=== PATIENT | male | born 1940 | race Caucasian/White ===

== ENCOUNTER 2018-08-23 22:52 | Observation (INO) | payer MEDICARE ==
[2018-08-24] MEDS ORDERED: SODIUM CHLORIDE 0.9% 500 ML 500 ML IV STA (00:02)
--- NOTE | 2018-08-24 00:11 | ED ---
General Adult HPI - General Source: patient Mode of arrival: ambulatory Limitations: no limitations <Tyra Horn - Last Filed: 08/24/18 01:45> <Randall Rowe - Last Filed: 08/25/18 08:11> - General Chief complaint: Allergic Reaction Stated complaint: Medication reaction Time Seen by Provider: 08/23/18 23:30 - History of Present Illness Initial comments: 78-year-old male patient presents to the emergency department today for evaluation of chest and throat pressure. Patient states that it started yesterday morning and has been intermittent since. Patient states that when the pressure comes on causes intense feeling in his chest but then it resolves. Patient is taking clindamycin for a recent dental procedure and infection. Patient was concerned he may be having an ALLERGIC reaction however has taken 9 prophylaxis clindamycin before each dental procedure because he has history of knee replacement. Patient denies any rash, itching, lip, or tongue swelling. Denies any shortness of breath, cough, congestion, nausea, vomiting or sweats. Patient denies any past medical history of cardiac events or family history of heart problems. Patient denies any use of tobacco or history of diabetes. Patient denies any recent rash, fever, chills, abdominal pain, diarrhea, constipation, back pain, numbness, tingling, dizziness, weakness, hematuria, dysuria, urinary urgency, urinary frequency, headache, visual changes, or any other complaints. (Tyra Horn) - Related Data Allergies Allergy/AdvReac Type Severity Reaction Status Date / Time Penicillins Allergy Rash/Hives Verified 08/24/18 09:17 Review of Systems ROS Other: All systems not noted in ROS Statement are negative. <Tyra Horn - Last Filed: 08/24/18 01:45> ROS Other: All systems not noted in ROS Statement are negative. <Randall Rowe - Last Filed: 08/25/18 08:11> ROS Statement: Those systems with pertinent positive or pertinent negative responses have been documented in the HPI. Past Medical History Past Medical History: No Reported History History of Any Multi-Drug Resistant Organisms: None Reported Past Surgical History: Appendectomy, Orthopedic Surgery Additional Past Surgical History / Comment(s): lt knee Past Psychological History: No Psychological Hx Reported Smoking Status: Never smoker Past Alcohol Use History: Occasional Past Drug Use History: None Reported <Tyra Horn M - Last Filed: 08/24/18 01:45> General Exam Limitations: no limitations General appearance: alert, in no apparent distress, other (This is a well- developed, well-nourished elderly male patient in no acute distress. Vital signs upon presentation are temperature 98.7F, pulse 82, respirations 20, blood pressure 190/83, pulse ox 98% on room air.) Eye exam: Present: normal appearance, PERRL, EOMI. Absent: scleral icterus, conjunctival injection, periorbital swelling ENT exam: Present: normal exam, normal oropharynx, mucous membranes moist Respiratory exam: Present: normal lung sounds bilaterally. Absent: respiratory distress, wheezes, rales, rhonchi, stridor Cardiovascular Exam: Present: regular rate, normal rhythm, normal heart sounds. Absent: systolic murmur, diastolic murmur, rubs, gallop, clicks GI/Abdominal exam: Present: soft, normal bowel sounds. Absent: distended, tenderness, guarding, rebound, rigid Neurological exam: Present: alert, oriented X3, CN II-XII intact Psychiatric exam: Present: normal affect, normal mood Skin exam: Present: warm, dry, intact, normal color. Absent: rash <Tyra Horn M - Last Filed: 08/24/18 01:45> Vital Signs 08/23/18 08/24/18 08/24/18 22:54 01:22 03:45 Temperature 98.7 F Pulse Rate 82 65 Respiratory 20 18 18 Rate Blood Pressure 190/83 159/79 O2 Sat by Pulse 98 97 Oximetry 08/24/18 08/24/18 08/24/18 04:58 05:45 07:33 Temperature 98.7 F 97.9 F 97.8 F Pulse Rate 71 75 71 Respiratory 18 18 18 Rate Blood Pressure 187/92 187/116 172/89 O2 Sat by Pulse 98 96 96 Oximetry 08/24/18 08/24/18 09:22 10:17 Temperature 97.7 F Pulse Rate 64 63 Respiratory 16 18 Rate Blood Pressure 196/101 189/88 O2 Sat by Pulse 97 98 Oximetry EKG Findings - EKG Comments: EKG Findings:: EKG obtained at 00 31 shows sinus rhythm with PACs, right bundle branch block. Ventricular rate is 76, VA interval 192, QRS duration 124, QT 428 , QTC 481. No evidence of ST elevation or depression. <Tyra Horn - Last Filed: 08/24/18 01:45> Medical Decision Making - Lab Data Result diagrams: 08/24/18 00:40 08/24/18 00:40 - Radiology Data Radiology results: report reviewed, image reviewed <Tyra Horn - Last Filed: 08/24/18 01:45> - Lab Data Result diagrams: 08/24/18 00:40 08/24/18 00:40 <Randall Rowe - Last Filed: 08/25/18 08:11> - Medical Decision Making 78 year-old male patient presents to the emergency department today for evaluation of chest pressure and throat tightness. This has been happening intermittently since yesterday. Patient was concerned he may be having ALLERGIC reaction to clindamycin however has tolerated this numerous times in the past that this is unlikely. Labs reviewed and are unremarkable. Chest x- ray showed no acute cardiopulmonary process. Patient did have evidence of EKG changes with right bundle branch block and PACs. We have no previous EKGs to compare. Given EKG findings and his symptoms we will admit for observation and further evaluation by cardiology tomorrow. Did discuss findings, results, and plan with the patient, he is agreeable. (Tyra Horn) I saw this patient in conjunction with the physician regional administrative assistant. I performed independent history and physical exam. Agree with case management. (Randall Rowe) - Lab Data Lab Results 08/24/18 08/24/18 08/24/18 Range/Units 00:40 00:40 00:40 WBC 5.2 (3.8-10.6) k/uL RBC 5.04 (4.30-5.90) m/uL Hgb 13.7 (13.0-17.5) gm/dL Hct 42.4 (39.0-53.0) % MCV 84.2 (80.0-100.0) fL MCH 27.3 (25.0-35.0) pg MCHC 32.4 (31.0-37.0) g/dL RDW 13.8 (11.5-15.5) % Plt Count 166 (150-450) k/uL Neutrophils % 62 % Lymphocytes % 23 % Monocytes % 10 % Eosinophils % 2 % Basophils % 1 % Neutrophils # 3.3 (1.3-7.7) k/uL Lymphocytes # 1.2 (1.0-4.8) k/uL Monocytes # 0.5 (0-1.0) k/uL Eosinophils # 0.1 (0-0.7) k/uL Basophils # 0.0 (0-0.2) k/uL PT (9.0-12.0) sec INR (<1.2) APTT (22.0-30.0) sec Sodium 141 (137-145) mmol/L Potassium 3.5 (3.5-5.1) mmol/L Chloride 106 (98-107) mmol/L Carbon Dioxide 26 (22-30) mmol/L Anion Gap 9 mmol/L BUN 17 (9-20) mg/dL Creatinine 0.90 (0.66-1.25) mg/dL Est GFR (CKD-EPI)AfAm >90 (>60 ml/min/1.73 sqM) Est GFR (CKD-EPI)NonAf 83 (>60 ml/min/1.73 sqM) Glucose 108 H (74-99) mg/dL Calcium 8.2 L (8.4-10.2) mg/dL Magnesium 1.7 (1.6-2.3) mg/dL Total Bilirubin 0.3 (0.2-1.3) mg/dL AST 29 (17-59) U/L ALT 40 (21-72) U/L Alkaline Phosphatase 71 (38-126) U/L Total Creatine Kinase 206 H (55-170) U/L CK-MB (CK-2) 3.1 H (0.0-2.4) ng/mL CK-MB (CK-2) Rel Index 1.5 Troponin I <0.012 (0.000-0.034) ng/mL Total Protein 6.4 (6.3-8.2) g/dL Albumin 3.6 (3.5-5.0) g/dL 08/24/18 Range/Units 00:40 WBC (3.8-10.6) k/uL RBC (4.30-5.90) m/uL Hgb (13.0-17.5) gm/dL Hct (39.0-53.0) % MCV (80.0-100.0) fL MCH (25.0-35.0) pg MCHC (31.0-37.0) g/dL RDW (11.5-15.5) % Plt Count (150-450) k/uL Neutrophils % % Lymphocytes % % Monocytes % % Eosinophils % % Basophils % % Neutrophils # (1.3-7.7) k/uL Lymphocytes # (1.0-4.8) k/uL Monocytes # (0-1.0) k/uL Eosinophils # (0-0.7) k/uL Basophils # (0-0.2) k/uL PT 10.8 (9.0-12.0) sec INR 1.1 (<1.2) APTT 25.2 (22.0-30.0) sec Sodium (137-145) mmol/L Potassium (3.5-5.1) mmol/L Chloride (98-107) mmol/L Carbon Dioxide (22-30) mmol/L Anion Gap mmol/L BUN (9-20) mg/dL Creatinine (0.66-1.25) mg/dL Est GFR (CKD-EPI)AfAm (>60 ml/min/1.73 sqM) Est GFR (CKD-EPI)NonAf (>60 ml/min/1.73 sqM) Glucose (74-99) mg/dL Calcium (8.4-10.2) mg/dL Magnesium (1.6-2.3) mg/dL Total Bilirubin (0.2-1.3) mg/dL AST (17-59) U/L ALT (21-72) U/L Alkaline Phosphatase (38-126) U/L Total Creatine Kinase (55-170) U/L CK-MB (CK-2) (0.0-2.4) ng/mL CK-MB (CK-2) Rel Index Troponin I (0.000-0.034) ng/mL Total Protein (6.3-8.2) g/dL Albumin (3.5-5.0) g/dL - Radiology Data Two-view x-ray of the chest is obtained. There is a small linear density at the left lung base. There is no heart failure. Heart size is normal. There is poor inspiration. Thoracic aorta is atheromatous. There is no pleural effusion. Bony thorax is intact. Impression by Dr. Hines shows subsegmental atelectasis at the lung bases. No heart failure or pulmonary consolidation. Normal heart. (Tyra Horn) Disposition Decision to Admit Reason: Admit from EC Decision Date: 08/24/18 Decision Time: 01:49 <Tyra Horn - Last Filed: 08/24/18 01:45> <Randall Rowe - Last Filed: 08/25/18 08:11> Clinical Impression: Atypical chest pain Disposition: ADMITTED IP TO THIS HOSP Condition: Serious
--- NOTE | 2018-08-24 01:05 | XR ---
EXAMINATION TYPE: XR chest 2V DATE OF EXAM: 08/24/2018 COMPARISON: NONE HISTORY: Chest pain for one day TECHNIQUE: Frontal and lateral views of the chest are obtained. FINDINGS: There is small linear density at the left lung base. There is no heart failure. Heart size is normal. There is poor inspiration. Thoracic aorta is atheromatous. There is no pleural effusion. Bony thorax is intact. IMPRESSION: Subsegmental atelectasis at the lung bases. No heart failure or pulmonary consolidation. Normal heart.
[2018-08-24 01:06] LABS: Basophils % (A) 1 %; Eosinophils # (A) 0.1 k/uL (0-0.7); Eosinophils % (A) 2 %; HCT 42.4 % (39.0-53.0); HGB 13.7 gm/dL (13.0-17.5); Lymphocytes # (A) 1.2 k/uL (1.0-4.8); Lymphocytes % (A) 23 %; MCH 27.3 pg (25.0-35.0); MCHC 32.4 g/dL (31.0-37.0); MCV 84.2 fL (80.0-100.0); Mean Platelet Volume 7.4; Monocytes # (A) 0.5 k/uL (0-1.0); Monocytes % (A) 10 %; Neutrophils # (A) 3.3 k/uL (1.3-7.7); Neutrophils % (A) 62 %; Platelet Count 166 k/uL (150-450); RBC 5.04 m/uL (4.30-5.90); RDW 13.8 % (11.5-15.5); WBC 5.2 k/uL (3.8-10.6)
[2018-08-24 01:07] LABS: ALT 40 U/L (21-72); AST 29 U/L (17-59); Albumin 3.6 g/dL (3.5-5.0); Alkaline Phosphatase 71 U/L (38-126); Anion Gap 9 mmol/L; Blood Urea Nitrogen 17 mg/dL (9-20); Calcium 8.2 mg/dL (8.4-10.2); Carbon Dioxide 26 mmol/L (22-30); Chloride 106 mmol/L (98-107); Glucose 108 mg/dL (74-99); Magnesium 1.7 mg/dL (1.6-2.3); Potassium 3.5 mmol/L (3.5-5.1); Sodium 141 mmol/L (137-145); Total Bilirubin 0.3 mg/dL (0.2-1.3); Total Protein 6.4 g/dL (6.3-8.2)
[2018-08-24 01:10] LABS: Creatine Kinase 206 U/L (55-170)
[2018-08-24 01:13] LABS: INR 1.1 (<1.2); Prothrombin Time 10.8 sec (9.0-12.0)
[2018-08-24 01:14] LABS: Partial Thromboplastin Time 25.2 sec (22.0-30.0)
[2018-08-24 01:23] LABS: Creatine Kinase MB 3.1 ng/mL (0.0-2.4); Troponin I <0.012 ng/mL (0.000-0.034)
[2018-08-24] MEDS ORDERED: NITROGLYCERIN SL TABS 0.4 MG TAB SUBLINGUAL PRN (01:43)
[2018-08-24] MEDS ORDERED: METOPROLOL TARTRATE 25 MG TAB PO STA (06:50)
[2018-08-24] MEDS ORDERED: LISINOPRIL 5 MG TAB PO ONE (07:55)
[2018-08-24 08:01] LABS: Creatine Kinase 160 U/L (55-170)
[2018-08-24 08:11] LABS: Creatine Kinase MB 2.7 ng/mL (0.0-2.4); Troponin I <0.012 ng/mL (0.000-0.034)
[2018-08-24] MEDS ORDERED: REGADENOSON 0.4 MG/5 ML SYRINGE IV ONE (09:01)
[2018-08-24] MEDS ORDERED: CAFFEINE CITRATE 60 MG/3 ML VIAL IV PRN (09:01)
--- NOTE | 2018-08-24 09:46 | P.CRDCN ---
History of Present Illness History of present illness: Mr. Benites is a pleasant 78-year-old female past medical history significant for gastroesophageal reflux disease. He denies history of coronary artery disease, hypertension, diabetes or dyslipidemia. We have asked him in consultation for chest pain. He states he started taking antibiotics last week for a root canal procedure. He underwent the procedure Tuesday without incident. Tuesday he started having intermittent episodes of tightness in the mid-sternal region with radiation up into his neck. The symptoms would last for a couple minutes and then subside on their own. He had no shortness of breath, dizziness , nausea, vomiting or palpitations. The symptoms persisted intermittently throughout the day Tuesday and then again throughout the day Tuesday. He states he saw his primary care physician recently and had his cholesterol drawn and said that it was normal. Since arriving in the ED has had no further symptoms of chest discomfort. He is seen and examined by myself and Dr. Eli resting comfortably in bed in no acute distress. Upon arrival blood pressure was 190/83 with a heart rate of 82. Blood pressure remained elevated through the night in the 170-180 range. He was given metoprolol 25 mg this morning at 7 AM. Repeat thereafter was again high 196/101. EKG on arrival reveals sinus mechanism with right bundle branch block pattern with PACs. Chest xray reveals subsegmental atelectasis at the lung bases. No heart failure or consolidation. Laboratory data reviewed, hgb 13.8, plt 166, sodium 141, potassium 3.5, magnesium 1.7, creatinine 0.9, cardiac enzymes negative x2. He takes only over the counter medications for GERD, no prescription medication daily. Plan: An acute coronary event has been ruled out. Obtain 2-D echocardiogram and Doppler study to assess cardiac structure and function. Perform Lexiscan stress test to assess for reversible cardiac ischemia. If normal he is stable from a cardiac perspective. If abnormal we will consider coronary angiography. Add on small dose of lisinopril 5 mg, give now. Review of Systems At the time of my exam: CONSTITUTIONAL: Denies fever. Denies chills. EYES: Denies blurred vision. Denies vision changes. Denies eye pain. EARS, NOSE, MOUTH & THROAT: Denies headache. Denies sore throat. Denies ear pain. CARDIOVASCULAR: Denies chest pain. Denies shortness of breath. Denies orthopnea. Denies PND. Denies palpitations. RESPIRATORY: Denies cough. GASTROINTESTINAL: Denies abdominal pain. Denies diarrhea. Denies constipation. Denies nausea. Denies vomiting. MUSCULOSKELETAL: Denies myalgias. INTEGUMENTARY: Denies pruitis. Denies rash. NEUROLOGIC: Denies numbness. Denies tingling. Denies weakness. PSYCHIATRIC: Denies anxiety. Denies depression. ENDOCRINE: Denies fatigue. Denies weight change. Denies polydipsia. Denies polyurina. GENITOURINARY: Denies burning, hematuria or urgency with micturation. HEMATOLOGIC: Denies history of anemia. Denies bleeding. Past Medical History Past Medical History: No Reported History History of Any Multi-Drug Resistant Organisms: None Reported Past Surgical History: Appendectomy, Orthopedic Surgery Additional Past Surgical History / Comment(s): lt knee Past Psychological History: No Psychological Hx Reported Smoking Status: Never smoker Past Alcohol Use History: Occasional Past Drug Use History: None Reported Medications and Allergies Allergies Allergy/AdvReac Type Severity Reaction Status Date / Time Penicillins Allergy Rash/Hives Verified 08/23/18 22:57 Physical Exam Vitals: Vital Signs Temp Pulse Resp BP Pulse Ox 08/24/18 07:33 97.8 F 71 18 172/89 96 08/24/18 05:45 97.9 F 75 18 187/116 96 08/24/18 04:58 98.7 F 71 18 187/92 98 08/24/18 03:45 18 08/24/18 01:22 65 18 159/79 97 08/23/18 22:54 98.7 F 82 20 190/83 98 Intake and Output 08/23/18 08/24/18 08/24/18 22:59 06:59 14:59 Other: Weight 74.843 kg Blood pressure 196/101 heart rate 64 afebrile maintaining oxygen saturation on room air GENERAL: This is a 78-year-old male in no apparent distress at the time of my examination. HEENT: Head is atraumatic, normocephalic. Pupils are equal, round. Sclerae anicteric. Conjunctivae are clear. Mucous membranes of the mouth are moist. Neck is supple. There is no jugular venous distention. No carotid bruit is heard. LUNGS: Clear to auscultation no wheezes, rales or rhonchi. No chest wall tenderness is noted on palpation or with deep breathing. HEART: Regular rate and rhythm without murmurs, rubs or gallops. S1 and S2 heard. ABDOMEN: Soft, nontender. Bowel sounds are heard. No organomegaly noted. EXTREMITIES: No evidence of peripheral edema and no calf tenderness noted. VASCULAR: Radial and dorsalis pedis pulses palpated, no evidence of clubbing. NEUROLOGIC: Patient is awake, alert and oriented x3. Results 08/24/18 00:40 08/24/18 00:40 Cardiac Enzymes 08/24/18 08/24/18 Range/Units 00:40 00:40 AST 29 (17-59) U/L CK-MB (CK-2) 3.1 H (0.0-2.4) ng/mL Troponin I <0.012 (0.000-0.034) ng/mL Coagulation 08/24/18 Range/Units 00:40 PT 10.8 (9.0-12.0) sec APTT 25.2 (22.0-30.0) sec CBC 08/24/18 Range/Units 00:40 WBC 5.2 (3.8-10.6) k/uL RBC 5.04 (4.30-5.90) m/uL Hgb 13.7 (13.0-17.5) gm/dL Hct 42.4 (39.0-53.0) % Plt Count 166 (150-450) k/uL Comprehensive Metabolic Panel 08/24/18 Range/Units 00:40 Sodium 141 (137-145) mmol/L Potassium 3.5 (3.5-5.1) mmol/L Chloride 106 (98-107) mmol/L Carbon Dioxide 26 (22-30) mmol/L BUN 17 (9-20) mg/dL Creatinine 0.90 (0.66-1.25) mg/dL Glucose 108 H (74-99) mg/dL Calcium 8.2 L (8.4-10.2) mg/dL AST 29 (17-59) U/L ALT 40 (21-72) U/L Alkaline Phosphatase 71 (38-126) U/L Total Protein 6.4 (6.3-8.2) g/dL Albumin 3.6 (3.5-5.0) g/dL Current Medications Generic Name Dose Route Start Last Admin Trade Name Darenq PRN Reason Stop Dose Admin Aspirin 325 mg 08/25/18 09:00 Aspirin PO DAILY HECTOR Nitroglycerin 0.4 mg 08/24/18 01:43 Nitrostat SUBLINGUAL Q5M PRN Chest Pain Intake and Output 08/23/18 08/24/18 08/24/18 22:59 06:59 14:59 Other: Weight 74.843 kg 08/24/18 00:40 08/24/18 00:40 Assessment and Plan Assessment: ASSESSMENT Chest pain, atypical. An acute event has been ruled out. History of gastroesophageal reflux disease Hypertension, no known history currently not on any medications. PLAN An acute coronary event has been ruled out. Obtain 2-D echocardiogram and Doppler study to assess cardiac structure and function. Perform Lexiscan stress test to assess for reversible cardiac ischemia. If normal he is stable from a cardiac perspective. If abnormal we will consider coronary angiography. Add on small dose of lisinopril 5 mg, give now. Thank you kindly for this consultation. Nurse Practitioner note has been reviewed, I agree with a documented findings and plan of care. Patient was seen and examined.
[2018-08-24 10:18] VITALS: RESP 18
[2018-08-24 12:42] VITALS: BP 184/94; PULSE 64; TEMP 97.6
[2018-08-24] MEDS ORDERED: MAGNESIUM OXIDE 400 MG TAB PO STA (12:43)
--- NOTE | 2018-08-24 12:46 | NM ---
EXAMINATION TYPE: NM stress lexiscan cardiolite DATE OF EXAM: 08/24/2018 COMPARISON: NONE HISTORY: Chest pain. TECHNIQUE: After the intravenous administration of 10.0 mCi Tc 99m Sestamibi - Cardiolite resting SP ECT images acquired 45 minutes post injection. The patient received 0.4mg Lexiscan, 27.1 mCi Tc 99m Sestamibi - Stress images obtained [address] injection FINDINGS: Review of stress and rest SPECT images demonstrates no distinct perfusion abnormality. Gated analysi s shows normal wall motion with an estimated left ventricular ejection fraction of 66 %. Transient is chemic dilatation coefficient is within normal limits calculated at 0.82. IMPRESSION: No scintigraphic evidence for reversible ischemia. Normal ejection fraction.
--- NOTE | 2018-08-24 13:03 | ECHOF ---
Referral Reason:cp MEASUREMENTS -------- HEIGHT: 172.7 cm WEIGHT: 83.9 kg BP: IVSd: 1.3 cm (0.6 - 1.1) LVIDd: 4.9 cm (3.9 - 5.3) LVPWd: 1.0 cm (0.6 - 1.1) IVSs: 1.4 cm LVIDs: 3.6 cm LVPWs: 1.1 cm LA Diam: 3.6 cm (2.7 - 3.8) LAESV Index (A-L): 29.71 ml/m Ao Diam: 3.6 cm (2.0 - 3.7) AV Cusp: 2.0 cm (1.5 - 2.6) LA Diam: 4.4 cm (2.7 - 3.8) MV EXCURSION: 22.560 mm (> 18.000) MV EF SLOPE: 100 mm/s (70 - 150) EPSS: 0.7 cm MV E Matthew: 0.62 m/s MV DecT: 167 ms MV A Matthew: 0.69 m/s MV E/A Ratio: 0.89 RAP: 5.00 mmHg RVSP: 17.61 mmHg FINDINGS -------- Sinus rhythm. This was a technically good study. The left ventricular size is normal. There is mild concentric left ventricular hypertrophy. Overa ll left ventricular systolic function is low-normal with, an EF between 50 - 55 %. The right ventricle is normal in size. The left atrial size is normal. Normal LA size by volume 22+/-6 ml/m2. The right atrial size is normal. There is mild aortic valve sclerosis. There is no evidence of aortic regurgitation. Mild mitral annular calcification present. Mild mitral regurgitation is present. Mild tricuspid regurgitation present. There is no evidence of pulmonary hypertension. The right v entricular systolic pressure, as measured by Doppler, is 17.61mmHg. There is no pulmonic regurgitation present. The aortic root size is normal. There is no pericardial effusion. CONCLUSIONS -------- 1. The left ventricular size is normal. 2. There is mild concentric left ventricular hypertrophy. 3. Overall left ventricular systolic function is low-normal with, an EF between 50 - 55 %. 4. The right ventricle is normal in size. 5. The left atrial size is normal. 6. The right atrial size is normal. 7. There is mild aortic valve sclerosis. 8. Mild mitral annular calcification present. 9. Mild mitral regurgitation is present. 10. Mild tricuspid regurgitation present. 11. There is no evidence of pulmonary hypertension. 12. The right ventricular systolic pressure, as measured by Doppler, is 17.61mmHg. 13. There is no pulmonic regurgitation present. 14. The aortic root size is normal. 15. There is no pericardial effusion. [employer] BR[employer]ING MACHINE OPERATOR: Vonda Sullivan RDCS
--- NOTE | 2018-08-24 15:56 | P.HPIM ---
History of Present Illness 78-year-old was Emiliano came in to ER with complaints of throat pressure chest pressure after getting clindamycin and he believes is ALLERGIC reaction to bleomycin patient had a recent root canal in the right lower tooth and the was prescribed clindamycin by the dentist. Patient chest pressure is not associated with the diaphoresis nausea only temporary only lasted for a few minutes denied any dizziness nonpruritic in nature not associated with food. Patient blood pressure is bit elevated throughout the hospitalization patient was started on lisinopril. Patient was evaluated by cardiology rule out acute coronary syndromes patient underwent stress test which was negative and patient is being discharged today in stable medical condition to home clindamycin is being discontinued and I asked the patient to call his dentist find if he will need more antibiotics. Please refer to air traffic control operator dictation for further details Review of Systems REVIEW OF SYSTEMS: CONSTITUTIONAL: No fever, no malaise, no fatigue. HEENT: No recent visual problems or hearing problems. Denied any sore throat. CARDIOVASCULAR: No orthopnea, PND, no palpitations, no syncope. PULMONARY: No shortness of breath, no cough, no hemoptysis. GASTROINTESTINAL: No diarrhea, no nausea, no vomiting, no abdominal pain. Normoactive bowel sounds. NEUROLOGICAL: No headaches, no weakness, no numbness. HEMATOLOGICAL: Denies any bleeding or petechiae. GENITOURINARY: Denies any burning micturition, frequency, or urgency. MUSCULOSKELETAL/RHEUMATOLOGICAL: Denies any joint pain, swelling, or any muscle pain. ENDOCRINE: Denies any polyuria or polydipsia. The rest of the 14-point review of systems is negative. Past Medical History Past Medical History: GERD/Reflux Additional Past Medical History / Comment(s): Recent tooth infection, insomnia. History of Any Multi-Drug Resistant Organisms: None Reported Past Surgical History: Appendectomy, Joint Replacement Additional Past Surgical History / Comment(s): L total knee arthroplasty, bilateral cataract removal with lens implants. Past Anesthesia/Blood Transfusion Reactions: No Reported Reaction Smoking Status: Former smoker - Past Family History Mother Family Medical History: No Reported History Additional Family Medical History / Comment(s): Mother lived to be 93 yrs old. Father Family Medical History: Cancer Additional Family Medical History / Comment(s): Father of prostrate cancer at the age of 64yrs. Medications and Allergies Home Medications Medication Instructions Recorded Confirmed Type Ibuprofen [Motrin] 800 mg PO Q4H PRN 08/24/18 08/24/18 History Lisinopril [Zestril] 5 mg PO DAILY #30 tablet 08/24/18 Rx Omeprazole 20 mg PO DAILY 08/24/18 08/24/18 History Temazepam [Restoril] 30 mg PO HS PRN 08/24/18 08/24/18 History Allergies Allergy/AdvReac Type Severity Reaction Status Date / Time Penicillins Allergy Rash/Hives Verified 08/24/18 09:17 Physical Exam Vitals: Vital Signs Temp Pulse Pulse Resp BP BP Pulse Ox 08/24/18 12:39 97.6 F 64 18 184/94 98 08/24/18 12:35 72 18 181/83 97 08/24/18 10:17 97.7 F 63 18 189/88 98 08/24/18 09:22 64 16 196/101 97 08/24/18 07:33 97.8 F 71 18 172/89 96 08/24/18 05:45 97.9 F 75 18 187/116 96 08/24/18 04:58 98.7 F 71 18 187/92 98 08/24/18 03:45 18 08/24/18 01:22 65 18 159/79 97 08/23/18 22:54 98.7 F 82 20 190/83 98 Intake and Output 08/24/18 08/24/18 08/24/18 06:59 14:59 22:59 Other: Weight 78.5 kg PHYSICAL EXAMINATION: GENERAL: The patient is alert and oriented x3, not in any acute distress. Well developed, well nourished. HEENT: Pupils are round and equally reacting to light. EOMI. No scleral icterus. No conjunctival pallor. Normocephalic, atraumatic. No pharyngeal erythema. No thyromegaly. CARDIOVASCULAR: S1 and S2 present. No murmurs, rubs, or gallops. PULMONARY: Chest is clear to auscultation, no wheezing or crackles. ABDOMEN: Soft, nontender, nondistended, normoactive bowel sounds. No palpable organomegaly. MUSCULOSKELETAL: No joint swelling or deformity. EXTREMITIES: No cyanosis, clubbing, or pedal edema. NEUROLOGICAL: Gross neurological examination did not reveal any focal deficits. SKIN: No rashes. Results CBC & Chem 7: 10/11/18 00:40 08/24/18 00:40 Labs: Abnormal Lab Results - Last 24 Hours (Table) 08/24/18 08/24/18 08/24/18 Range/Units 00:40 00:40 07:25 Glucose 108 H (74-99) mg/dL Calcium 8.2 L (8.4-10.2) mg/dL Total Creatine Kinase 206 H (55-170) U/L CK-MB (CK-2) 3.1 H 2.7 H (0.0-2.4) ng/mL Thrombosis Risk Factor Assmnt - Choose All That Apply Any of the Below Risk Factors Present?: Yes Each Factor Represents 1 point: Obesity (BMI >25) Other Risk Factors: Yes Each Risk Factor Represents 3 Points: Age 75 years or older Other congenital or acquired thrombophilia - If yes, enter type in comment: No Thrombosis Risk Factor Assessment Total Risk Factor Score: 4 Thrombosis Risk Factor Assessment Level: Moderate Risk Assessment and Plan Plan: -Chest pain: Rule out acute coronary syndromes stroke, stresses is negative -Possible ALLERGIC reaction to clindamycin -Hypertension -Gastro- esophageal reflux disease
--- NOTE | 2018-08-24 15:56 | P.DS ---
Providers Date of admission: 08/24/18 02:12 Attending physician: Carlos Adams Consults: 08/24/18 01:43 Consult Physician Urgent Consulting Provider: [facility] Consult Reason/Comments: Atypical Chest Pain Do you want consulting provider notified?: Yes Primary care physician: Kerwin Mckeon Hospital Course: Please refer to my HPI Patient Condition at Discharge: Serious Plan - Discharge Summary Discharge Rx Participant: No New Discharge Prescriptions: New Lisinopril [Zestril] 5 mg PO DAILY #30 tablet Discontinued Clindamycin [Cleocin] 150 mg PO TID Clindamycin [Cleocin] 300 mg PO ONCE No Action Temazepam [Restoril] 30 mg PO HS PRN PRN Reason: Insomnia Omeprazole 20 mg PO DAILY Ibuprofen [Motrin] 800 mg PO Q4H PRN PRN Reason: Pain Discharge Medication List Ibuprofen [Motrin] 800 mg PO Q4H PRN 08/24/18 [History] Lisinopril [Zestril] 5 mg PO DAILY #30 tablet 08/24/18 [Rx] Omeprazole 20 mg PO DAILY 08/24/18 [History] Temazepam [Restoril] 30 mg PO HS PRN 08/24/18 [History] Follow up Appointment(s)/Referral(s): Brandon Eli MD [STAFF PHYSICIAN] - 3 Weeks (The office will call early next week with follow up appointment with Dr. Eli) Kerwin Mckeon MD [Primary Care Provider] - 3 Days Patient Instructions/Handouts: Chest Pain (DC), Cardiac Stress Test (DC) Discharge Disposition: HOME SELF-CARE
--- NOTE | 2018-08-24 20:44 | EST ---
EXERCISE STRESS AGE: 78 SEX: M HT: 5 foot 8 WT: 165 PROTOCOL: Lexiscan HEART RATE REST: 63 BLOOD PRESSURE REST: 154/94 MAXIMUM HEART RATE ACHIEVED: 89 MAXIMUM BLOOD PRESSURE: 177/92 85% MPHR: 122 100% MPHR: 144. INDICATIONS: Chest pain. CLINICAL INFORMATION: Baseline EKG revealed a sinus mechanism with isolated PVCs with a nonspecific ST-T changes. There is evidence of a incomplete right bundle branch block type pattern. With Lexiscan administration, heart rate changed from 63-89 beats per minute and blood pressure changed from 154/91 to 174/90. EKG did not reveal any new ST-segment changes to indicate ischemia. The underlying right bundle with nonspecific ST-T changes were noted. By EKG criteria, this is an inconclusive Lexiscan stress test because of resting EKG changes. Patient did not have any significant symptoms. The nuclear scan results will be reported by the radiologist. PETE / FELA: [id number] /
[2018-08-25] MEDS ORDERED: ASPIRIN 325 MG TAB PO SCH (09:00)
== END 2018-08-24 14:30 | disposition home or self-care (01) ==
LOC: EC 22:52 → 3OBS 08-24 02:12
PROVIDERS: ADMIT Internal Medicine; ATTEND Internal Medicine
DX: R07.89 Other chest pain (principal); Z88.0 Allergy status to penicillin; Z90.49 Acquired absence of other specified parts of digestive tract; K21.9 Gastro-esophageal reflux disease without esophagitis; I10 Essential (primary) hypertension; I45.10 Unspecified right bundle-branch block; Z87.891 Personal history of nicotine dependence; Z96.1 Presence of intraocular lens; Z96.652 Presence of left artificial knee joint; Z98.41 Cataract extraction status, right eye; Z98.42 Cataract extraction status, left eye; Z79.899 Other long term (current) drug therapy
CPT/HCPCS: 99285; 36415; 93005; 93017; 93306; 80053; 82550; 82553; 83735; 84484; 85025; 85610; 85730; 71046; 78452; G0378; A9500; J2785

== ENCOUNTER 2019-06-10 20:47 | Inpatient (IN) | payer MEDICARE ==
[2019-06-10 20:59] LABS: Glucose,Whole Blood 86 mg/dL (75-99)
--- NOTE | 2019-06-10 21:09 | ED ---
Eye Problem HPI - General Chief complaint: Eye Problems Stated complaint: Lost of vision/Headache Time Seen by Provider: 06/10/19 20:54 Source: patient, RN notes reviewed Mode of arrival: ambulatory Limitations: no limitations - History of Present Illness Initial comments: This is a 79-year-old male history of stroke who states he was working on his tractor yesterday trying get one more blades off and one wouldn't come off easily he asked he struggled restrained using his feet to try and pry the bolt off. When he got done he came out from under tractor felt dizzy had a headache and suddenly lost vision in the left half of his left eye. This has been going on since yesterday morning nothing new he did have some tingling in his left toes. No weakness no other modifying factors this time no change in the symptoms since that time. No fevers chills nausea vomiting sweats or other symptoms reported. MD chief complaint: vision change, other If Pain, Quality: sharp Associated Symptoms: headache - Related Data Home Medications Medication Instructions Recorded Confirmed Omeprazole 20 mg PO DAILY 08/24/18 06/10/19 Temazepam [Restoril] 30 mg PO HS PRN 08/24/18 06/10/19 Ciprofloxacin HCl [Cipro] 500 mg PO BID 06/10/19 06/10/19 Finasteride [Proscar] 5 mg PO DAILY 06/10/19 06/10/19 Lisinopril-Hctz 20-25 mg 1 tab PO DAILY 06/10/19 06/10/19 [Zestoretic 20-25] Meclizine [Antivert] 25 mg PO TID 06/10/19 06/10/19 Allergies Allergy/AdvReac Type Severity Reaction Status Date / Time Penicillins Allergy Rash/Hives Verified 06/10/19 22:12 Review of Systems ROS Statement: Those systems with pertinent positive or pertinent negative responses have been documented in the HPI. ROS Other: All systems not noted in ROS Statement are negative. Past Medical History Past Medical History: GERD/Reflux, Prostate Disorder Additional Past Medical History / Comment(s): insomnia, History of Any Multi-Drug Resistant Organisms: None Reported Past Surgical History: Appendectomy, Joint Replacement Additional Past Surgical History / Comment(s): L total knee arthroplasty, bilateral cataract removal with lens implants. Past Anesthesia/Blood Transfusion Reactions: No Reported Reaction Past Psychological History: No Psychological Hx Reported Smoking Status: Former smoker Past Alcohol Use History: Occasional Past Drug Use History: None Reported - Past Family History Mother Family Medical History: No Reported History Additional Family Medical History / Comment(s): Mother lived to be 93 yrs old. Father Family Medical History: Cancer Additional Family Medical History / Comment(s): Father of prostrate cancer at the age of 64yrs. General Exam - General Exam Comments Initial Comments: This is a well-developed well-nourished awake alert oriented 3 male Limitations: no limitations General appearance: alert, anxious Head exam: Present: atraumatic, normocephalic, normal inspection Eye exam: Present: normal appearance, PERRL, EOMI. Absent: scleral icterus, conjunctival injection, periorbital swelling Pupils: Present: normal accommodation ENT exam: Present: normal exam, mucous membranes moist Neck exam: Present: normal inspection, full ROM, other (No stridor JVD or bruits). Absent: tenderness, meningismus, lymphadenopathy Respiratory exam: Present: normal lung sounds bilaterally. Absent: respiratory distress, wheezes, rales, rhonchi, stridor Cardiovascular Exam: Present: regular rate, normal rhythm, normal heart sounds. Absent: systolic murmur, diastolic murmur, rubs, gallop, clicks GI/Abdominal exam: Present: soft, normal bowel sounds. Absent: distended, tenderness, guarding, rebound, rigid Extremities exam: Present: normal inspection, full ROM, normal capillary refill. Absent: tenderness, pedal edema, joint swelling, calf tenderness Back exam: Present: normal inspection Neurological exam: Present: alert, oriented X3, CN II-XII intact, motor sensory deficit (Patient does demonstrate left homonymous hemianopsia no other neurological findings.) Psychiatric exam: Present: normal affect, normal mood Skin exam: Present: warm, dry, intact, normal color. Absent: rash Course Vital Signs 06/10/19 06/10/19 06/10/19 20:48 20:56 21:00 Temperature 98.3 F Pulse Rate 77 77 Respiratory 18 20 29 H Rate Blood Pressure 140/74 162/96 O2 Sat by Pulse 98 Oximetry 06/10/19 06/10/19 06/10/19 21:10 21:20 21:30 Temperature Pulse Rate 67 67 Respiratory 17 23 Rate Blood Pressure 150/84 147/82 147/82 O2 Sat by Pulse Oximetry 06/10/19 06/10/19 06/10/19 21:40 21:50 22:00 Temperature Pulse Rate 67 66 64 Respiratory 21 10 L 11 L Rate Blood Pressure 140/82 136/74 136/74 O2 Sat by Pulse Oximetry 06/10/19 06/10/19 06/10/19 22:10 22:20 22:24 Temperature Pulse Rate 69 66 71 Respiratory 11 L 20 38 H Rate Blood Pressure 133/77 147/79 147/79 O2 Sat by Pulse Oximetry 06/10/19 06/10/19 06/10/19 22:30 22:40 22:50 Temperature Pulse Rate 62 64 64 Respiratory 20 16 16 Rate Blood Pressure 147/79 147/85 151/83 O2 Sat by Pulse Oximetry 06/10/19 06/10/19 06/10/19 23:00 23:10 23:20 Temperature Pulse Rate 62 70 Respiratory 20 23 Rate Blood Pressure 151/83 144/78 169/93 O2 Sat by Pulse Oximetry 06/10/19 06/10/19 06/10/19 23:30 23:40 23:50 Temperature Pulse Rate 66 64 65 Respiratory 17 19 19 Rate Blood Pressure 169/93 157/123 140/77 O2 Sat by Pulse Oximetry 06/11/19 06/11/19 06/11/19 00:00 00:10 00:20 Temperature Pulse Rate 62 64 70 Respiratory 13 20 21 Rate Blood Pressure 140/77 102/90 150/87 O2 Sat by Pulse Oximetry 06/11/19 00:30 Temperature Pulse Rate 63 Respiratory 20 Rate Blood Pressure 150/87 O2 Sat by Pulse Oximetry Medical Decision Making - Medical Decision Making I did reevaluate patient on multiple occasions for further deficits. Patient remains awake alert oriented 3 with no acute distress he still continues with left minus hemianopsia. Due to the findings patient will be admitted for evaluation by neurology and vascular surgery. Ophthalmology consultation will also be obtained case is discussed with Dr. Kearns - Lab Data Result diagrams: 06/10/19 21:04 06/10/19 21:04 Lab Results 06/10/19 06/10/19 06/10/19 Range/Units 20:57 21:04 21:04 WBC 5.4 (3.8-10.6) k/uL RBC 5.07 (4.30-5.90) m/uL Hgb 14.0 (13.0-17.5) gm/dL Hct 43.1 (39.0-53.0) % MCV 85.0 (80.0-100.0) fL MCH 27.6 (25.0-35.0) pg MCHC 32.5 (31.0-37.0) g/dL RDW 13.2 (11.5-15.5) % Plt Count 232 (150-450) k/uL Neutrophils % 59 % Lymphocytes % 22 % Monocytes % 11 % Eosinophils % 4 % Basophils % 1 % Neutrophils # 3.2 (1.3-7.7) k/uL Lymphocytes # 1.2 (1.0-4.8) k/uL Monocytes # 0.6 (0-1.0) k/uL Eosinophils # 0.2 (0-0.7) k/uL Basophils # 0.0 (0-0.2) k/uL PT (9.0-12.0) sec INR (<1.2) APTT (22.0-30.0) sec Sodium 138 (137-145) mmol/L Potassium 4.8 (3.5-5.1) mmol/L Chloride 100 (98-107) mmol/L Carbon Dioxide 26 (22-30) mmol/L Anion Gap 12 mmol/L BUN 27 H (9-20) mg/dL Creatinine 1.38 H (0.66-1.25) mg/dL Est GFR (CKD-EPI)AfAm 57 (>60 ml/min/1.73 sqM) Est GFR (CKD-EPI)NonAf 49 (>60 ml/min/1.73 sqM) Glucose 94 (74-99) mg/dL POC Glucose (mg/dL) 86 (75-99) mg/dL POC Glu Shipping Weigher ID Anette Rangel Calcium 8.6 (8.4-10.2) mg/dL Total Bilirubin 0.4 (0.2-1.3) mg/dL AST 35 (17-59) U/L ALT 36 (21-72) U/L Alkaline Phosphatase 63 (38-126) U/L Creatine Kinase 78 (55-170) U/L Troponin I (0.000-0.034) ng/mL Total Protein 7.1 (6.3-8.2) g/dL Albumin 4.2 (3.5-5.0) g/dL 06/10/19 06/10/19 Range/Units 21:04 21:04 WBC (3.8-10.6) k/uL RBC (4.30-5.90) m/uL Hgb (13.0-17.5) gm/dL Hct (39.0-53.0) % MCV (80.0-100.0) fL MCH (25.0-35.0) pg MCHC (31.0-37.0) g/dL RDW (11.5-15.5) % Plt Count (150-450) k/uL Neutrophils % % Lymphocytes % % Monocytes % % Eosinophils % % Basophils % % Neutrophils # (1.3-7.7) k/uL Lymphocytes # (1.0-4.8) k/uL Monocytes # (0-1.0) k/uL Eosinophils # (0-0.7) k/uL Basophils # (0-0.2) k/uL PT 11.1 (9.0-12.0) sec INR 1.1 (<1.2) APTT 26.9 (22.0-30.0) sec Sodium (137-145) mmol/L Potassium (3.5-5.1) mmol/L Chloride (98-107) mmol/L Carbon Dioxide (22-30) mmol/L Anion Gap mmol/L BUN (9-20) mg/dL Creatinine (0.66-1.25) mg/dL Est GFR (CKD-EPI)AfAm (>60 ml/min/1.73 sqM) Est GFR (CKD-EPI)NonAf (>60 ml/min/1.73 sqM) Glucose (74-99) mg/dL POC Glucose (mg/dL) (75-99) mg/dL POC Glu Shipping Weigher ID Calcium (8.4-10.2) mg/dL Total Bilirubin (0.2-1.3) mg/dL AST (17-59) U/L ALT (21-72) U/L Alkaline Phosphatase (38-126) U/L Creatine Kinase (55-170) U/L Troponin I <0.012 (0.000-0.034) ng/mL Total Protein (6.3-8.2) g/dL Albumin (3.5-5.0) g/dL - EKG Data -: EKG Interpreted by Me EKG shows normal: sinus rhythm (Sinus rhythm with PACs rate was 65. Interval 194 QRS duration 120 QT since QTC 422/438 evidence a right bundle-branch block.) - Radiology Data Radiology results: report reviewed (I did review the imaging and report [id number] stenosis of the cavernous sinus to her continuing segments of the internal carotid arteries mild to moderate stenosis of the P2 segment a left posterior cervical arteries also stenosis of the internal carotid artery is calcified plaque a 90% stenosis [id number] narrowing of the origins of both vertebral arteries please see the complete report for details.), image reviewed Disposition Clinical Impression: Left homonymous hemianopsia Disposition: ADMITTED IP TO THIS [facility] Condition: Fair Referrals: Kerwin Mckeon MD [Primary Care Provider] - 1-2 days
[2019-06-10 21:28] LABS: Basophils % (A) 1 %; Eosinophils # (A) 0.2 k/uL (0-0.7); Eosinophils % (A) 4 %; HCT 43.1 % (39.0-53.0); Lymphocytes # (A) 1.2 k/uL (1.0-4.8); Lymphocytes % (A) 22 %; MCH 27.6 pg (25.0-35.0); MCHC 32.5 g/dL (31.0-37.0); Mean Platelet Volume 7.2; Monocytes # (A) 0.6 k/uL (0-1.0); Monocytes % (A) 11 %; Neutrophils # (A) 3.2 k/uL (1.3-7.7); Neutrophils % (A) 59 %; Platelet Count 232 k/uL (150-450); RBC 5.07 m/uL (4.30-5.90); RDW 13.2 % (11.5-15.5); WBC 5.4 k/uL (3.8-10.6)
[2019-06-10 21:37] LABS: INR 1.1 (<1.2); Partial Thromboplastin Time 26.9 sec (22.0-30.0); Prothrombin Time 11.1 sec (9.0-12.0)
--- NOTE | 2019-06-10 21:39 | CT ---
EXAMINATION TYPE: CT brain wo con DATE OF EXAM: 06/10/2019 COMPARISON: None HISTORY: Pt c/o excessive watering LT eye, followed by loss of peripherial vision today, w/headache. CT DLP: 1150.4 mGycm Automated exposure control for dose reduction was used. Helical acquisition through the brain. FINDINGS: There is no hemorrhage or hydrocephalus. There is cortical atrophy. Periventricular white matter show s patchy low attenuation. There is low attenuation present within the right occipital lobe which is a symmetric. There are cerebral vascular calcifications. IMPRESSION: FINDINGS MAY REPRESENT SUBACUTE INFARCT RIGHT OCCIPITAL LOBE. MRI MAY BE CONFIRMATORY.
[2019-06-10 21:40] LABS: Albumin 4.2 g/dL (3.5-5.0); Calcium 8.6 mg/dL (8.4-10.2); Potassium 4.8 mmol/L (3.5-5.1); Total Bilirubin 0.4 mg/dL (0.2-1.3); Total Protein 7.1 g/dL (6.3-8.2)
--- NOTE | 2019-06-10 21:41 | XR ---
EXAMINATION TYPE: XR chest 2V DATE OF EXAM: 06/10/2019 COMPARISON: Prior chest x-ray 08/24/2018 HISTORY: Altered mental status TECHNIQUE: Frontal and lateral views of the chest are obtained. FINDINGS: Subsegmental atelectatic changes suspected at the lung bases. There are overlying cardiac l remy. Aorta is dense. Heart size is stable. No pneumothorax or pleural effusion.. IMPRESSION: Subsegmental atelectasis or scarring.
[2019-06-10] MEDS ORDERED: SODIUM CHLORIDE 0.9% 1,000 ML IV STA (23:14)
--- NOTE | 2019-06-11 00:48 | CT ---
EXAM: CT Angiography Head With Intravenous Contrast CLINICAL HISTORY: ITS.REASON CT Reason: Pain TECHNIQUE: Axial computed tomographic angiography images of the head with intravenous contrast using CT angiography protocol. DLP is 369.2 mGy-cm. This CT exam was performed using one or more of the following dose reduction techniques: automated exposure control, adjustment of the mA and/or kV according to patient size, and/or use of iterative reconstruction technique. MIP reconstructed images were created and reviewed. COMPARISON: Noncontrast exam of same day. FINDINGS: Right internal carotid artery: Atherosclerosis of the cavernous and supraclinoid segments results in mild-moderate narrowing. Right anterior cerebral artery: Unremarkable. No occlusion or significant stenosis. No aneurysm. Right middle cerebral artery: Unremarkable. No occlusion or significant stenosis. No aneurysm. Right posterior cerebral artery: Unremarkable. No occlusion or significant stenosis. No aneurysm. Right vertebral artery: Unremarkable as visualized. Left internal carotid artery: Atherosclerosis of the cavernous and supraclinoid segments results in mild-moderate narrowing. Left anterior cerebral artery: Unremarkable. No occlusion or significant stenosis. No aneurysm. Left middle cerebral artery: Unremarkable. No occlusion or significant stenosis. No aneurysm. Left posterior cerebral artery: Mild-moderate stenosis in the P2 segment. Left vertebral artery: Unremarkable as visualized. Basilar artery: Unremarkable. No occlusion or significant stenosis. No aneurysm. IMPRESSION: No proximal arterial occlusion or aneurysm. Mild-moderate stenosis of the cavernous and supraclinoid segments of the internal carotid arteries. Mild-moderate stenosis in the P2 segment of the left posterior cerebral artery. EXAM: CT Angiography Neck With Intravenous Contrast CLINICAL HISTORY: ITS.REASON CT Reason: Pain TECHNIQUE: Axial computed tomographic angiography images of the neck with intravenous contrast using CT angiography protocol. DLP is 369.2 mGy-cm. This CT exam was performed using one or more of the following dose reduction techniques: automated exposure control, adjustment of the mA and/or kV according to patient size, and/or use of iterative reconstruction technique. MIP reconstructed images were created and reviewed. COMPARISON: No relevant prior studies available. FINDINGS: VASCULATURE: Right internal carotid artery: Bulky calcified plaque in the proximal segment results in severe stenosis, estimated at 80-90% Right vertebral artery: Mild-moderate narrowing at the origin. Left internal carotid artery: Unremarkable. Extracranial segment is patent with no significant stenosis. No dissection or occlusion. Left vertebral artery: Mild-moderate narrowing at the origin. NECK: Bones/joints: No acute fracture. Cervical spondylosis. Soft tissues: Unremarkable as visualized. No mass. CAROTID STENOSIS REFERENCE USING NASCET CRITERIA: % ICA stenosis = (1 - narrowest ICA diameter/diameter of distal cervical ICA) x 100. Mild - <50% stenosis. Moderate - 50-69% stenosis. Severe - 70-94% stenosis. Near occlusion - 95-99% stenosis. Occluded - 100% stenosis. 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 80- 90% stenosis. Mild-moderate narrowing of the origins of both vertebral arteries.
[2019-06-11] MEDS ORDERED: ASPIRIN 325 MG TAB PO STA ×2 (01:02→17:03)
[2019-06-11 01:54] LABS: Glucose,Whole Blood 179 mg/dL (75-99)
[2019-06-11] MEDS ORDERED: TEMAZEPAM 30 MG CAP PO PRN (02:00)
[2019-06-11 02:24] VITALS: BMI 25.4
[2019-06-11] MEDS ORDERED: LISINOPRIL-HCTZ 20-25 MG 1 EACH TAB PO SCH (09:00)
[2019-06-11] MEDS: FINASTERIDE 5 MG TAB PO SCH (09:30)
[2019-06-11] MEDS: PANTOPRAZOLE 40 MG TABLET PO SCH (09:30)
[2019-06-11] MEDS: MECLIZINE 25 MG TAB PO SCH ×3 (09:30→19:49)
--- NOTE | 2019-06-11 09:57 | P.CNNES ---
History of Present Illness Consult date: 06/11/19 Requesting physician: Ruben Ramos Reason for Consult: Left homonymous hemianopsia Chief complaint: Visual disturbance History of Present Illness: This is a 79 RH male whose vascular risk factors include age and HTN. He was working on his tractor the day prior to admission when he felt dizzy with a posterior headache and suddenly lost vision out of the left half of his visual lamonte. He also complained of some tingling in the left toes. There was no motor weakness or other accompanying focal neurological symptoms. The visual disturbance is persistent. ER neuro exam demonstrates a left homonymous hemianopsia. Patient was out of the window for from a lytic therapy. There was no mentioning of the ER contacting interventional neurology for consideration of other endovascular intervention. Patient was admitted to our facility for conservative management. He was started on a full-strength aspirin 325 mg daily. Review of Systems 14-point ROS performed and as per HPI. Neurologically, patient denies decreased level or loss of consciousness, seizure, other changes in vision not mentioned above, diplopia, amaurosis, changes in hearing, facial droop, ptosis, vertigo, hearing loss, tinnitus, dysarthria, dysphagia, aphasia, other focal numbness/weakness not mentioned above, tremors, bowel/bladder incontinence or ataxia. Past Medical History Past Medical History: GERD/Reflux, Prostate Disorder Additional Past Medical History / Comment(s): insomnia, History of Any Multi-Drug Resistant Organisms: None Reported Past Surgical History: Appendectomy, Joint Replacement Additional Past Surgical History / Comment(s): L total knee arthroplasty, bilateral cataract removal with lens implants. Past Anesthesia/Blood Transfusion Reactions: No Reported Reaction Past Psychological History: No Psychological Hx Reported Additional Psychological History / Comment(s): Pt resides with his spouse. He is independent. Smoking Status: Never smoker Past Alcohol Use History: Occasional Additional Past Alcohol Use History / Comment(s): Pt started smoking in 1954 and quit in 2000. States drinking a glass of wine every night. Past Drug Use History: None Reported - Past Family History Mother Family Medical History: No Reported History Additional Family Medical History / Comment(s): Mother lived to be 93 yrs old. Father Family Medical History: Cancer Additional Family Medical History / Comment(s): Father of prostrate cancer at the age of 64yrs. Medications and Allergies Home Medications Medication Instructions Recorded Confirmed Type Omeprazole 20 mg PO DAILY 08/24/18 06/10/19 History Temazepam [Restoril] 30 mg PO HS PRN 08/24/18 06/10/19 History Ciprofloxacin HCl [Cipro] 500 mg PO BID 06/10/19 06/10/19 History Finasteride [Proscar] 5 mg PO DAILY 06/10/19 06/10/19 History Lisinopril-Hctz 20-25 mg 1 tab PO DAILY 06/10/19 06/10/19 History [Zestoretic 20-25] Meclizine [Antivert] 25 mg PO TID 06/10/19 06/10/19 History Allergies Allergy/AdvReac Type Severity Reaction Status Date / Time Penicillins Allergy Rash/Hives Verified 06/10/19 22:12 Physical Examination - Vital Signs Vital Signs: Vital Signs Temp Pulse Pulse Resp BP BP Pulse Ox 06/11/19 01:45 97.8 F 64 16 169/81 99 06/11/19 00:30 63 20 150/87 06/11/19 00:20 70 21 150/87 06/11/19 00:10 64 20 102/90 06/11/19 00:00 62 13 140/77 06/10/19 23:50 65 19 140/77 06/10/19 23:40 64 19 157/123 06/10/19 23:30 66 17 169/93 06/10/19 23:20 169/93 06/10/19 23:10 70 23 144/78 06/10/19 23:00 62 20 151/83 06/10/19 22:50 64 16 151/83 06/10/19 22:40 64 16 147/85 06/10/19 22:30 62 20 147/79 06/10/19 22:24 71 38 H 147/79 06/10/19 22:20 66 20 147/79 06/10/19 22:10 69 11 L 133/77 06/10/19 22:00 64 11 L 136/74 06/10/19 21:50 66 10 L 136/74 06/10/19 21:40 67 21 140/82 06/10/19 21:30 67 23 147/82 06/10/19 21:20 67 17 147/82 06/10/19 21:10 150/84 06/10/19 21:00 77 29 H 162/96 06/10/19 20:56 20 06/10/19 20:48 98.3 F 77 18 140/74 98 Intake and Output 06/10/19 06/11/19 06/11/19 22:59 06:59 14:59 Output Total 0 Balance 0 Output: Urine 0 Other: Voiding Method Toilet Weight 74.843 kg 76 kg Gen NAD Pleasant and cooperative HEENT NCAT Sclera without icterus O/P clear Neck Supple No carotid bruit Cor RRR no m/r/g Lungs CTAB Abd Soft NTND +BS Ext Warm to touch No edema Neuro MS A+Ox4 Normal fluency Able to follow all commands CN PERRL Left HH no APD EOMI no nystagmus or DONAVON No facial asymmetry Masseter's symmetric Hearing intact to normal voice bilaterally Speech not dysarthric Equal elevation of palate Tongue midline Sym shrug and SCM bilaterally Motor Normal bulk/tone No pronator or tremors Strength 5/5 sym throughout Sens Intact to LT x4 No neglect or extinction Coord No dysmetria on FTN bilaterally DTRs 2+/4 sym throughout Toes downgoing bilaterally No clonus at achilles Gait Deferred NIHSS 2 Results - Laboratory Findings CBC and BMP: 06/10/19 21:04 06/10/19 21:04 Abnormal Lab Findings: Abnormal Labs 06/10/19 06/11/19 21:04 01:52 BUN 27 H Creatinine 1.38 H POC Glucose (mg/dL) 179 H - Diagnostic Findings Additional findings: CT Head wo cont 06/11/19. There is low attenuation in the right occipital lobe that is asymmetric. No intracranial hemorrhage. Global atrophy. Chronic small vessel disease. CTA Head/Neck 06/11/19. Intracranially, there is mild to moderate stenosis of the cavernous and supraclinoid segments of the internal carotid arteries. There is also mild to moderate stenosis in the P2 segment of the left COMPENSATION EXPERT. Extracranially, there is severe stenosis of the proximal right ICA due to calcified plaque, estimated stenosis 80-90%. There is mild to moderate stenosis of the origins of both vertebral arteries. Carotid duplex 06/11/19. Proximal NERIS 50-69% stenosis. I have reviewed neuroimages myself. Assessment and Plan Assessment: New-onset left homonymous hemianopsia with evidence of low attenuation of contralateral occipital area, suspect acute CVA. Severe proximal NERIS stenosis, [id number] intracranial BICA stenosis and left P2 stenosis on CTA, none of which would explain his right occipital CVA, at least not from an [id number] phenomenon. Plan: -MRI Brain wo karen -TTE -Carotid duplex and CTA did show some discrepancy between degree of stenosis -Vascular consultation reviewed. I also discussed the case with Dr. Claros who opines while he will need his right CEA, it may not necessarily be done emergently. I do agree that this is a case of asymptomatic NERIS stenosis that would not explain his RPCA distribution ischemic infarct -ASA 325mg/day. Discussed with vascular surgery who does not see a role for DAPT for his asymptomatic NERIS stenosis at this point -Fasting lipids in am goal LDL <70 -PT/OT/SP per protocol -Cannot drive if he has persistent homonymous hemianopsia -Stroke education given to patient -DVT prophylaxis -Length discussion held with patient/family at bedside. All questions answered. Thank you for this consultation. Please call with ?. Time with Patient: Greater than 30 (Time spent in direct patient care, greater than 50% of which was spent in [id number] counseling and coordination of care: 70 minutes)
--- NOTE | 2019-06-11 10:55 | US ---
EXAMINATION TYPE: US carotid duplex BILAT DATE OF EXAM: 06/11/2019 COMPARISON: NONE CLINICAL HISTORY: 79-year-old male Carotid stenosis. Headache, carotid stenosis on recent CT Angio He ad and neck TECHNIQUE: Carotid duplex ultrasound examination. Indirect Doppler criteria was utilized. EXAM MEASUREMENTS: RIGHT: Peak Systolic Velocity (PSV) cm/sec ----- Right CCA: 90.0 ----- Right ICA: 214.4 ----- Right ECA: 109.7 ICA/CCA ratio: 2.4 RIGHT: End Diastole cm/sec ----- Right CCA: 12.9 ----- Right ICA: 49.9 ----- Right ECA: 9.5 LEFT: Peak Systolic Velocity (PSV) cm/sec ----- Left CCA: 108.3 ----- Left ICA: 97.7 ----- Left ECA: 107.3 ICA/CCA ratio: 0.9 LEFT: End Diastole cm/sec ----- Left CCA: 15.7 ----- Left ICA: 14.4 ----- Left ECA: 8.9 VERTEBRALS (direction of flow): Right Vertebral: Antegrade Left Vertebral: Antegrade Rhythm: Normal Medical Service Technician notes: Moderate to severe plaque right ICA. Mild plaque left bifurcation. Increased veloc ities right ICA IMPRESSION: Measurements on the present study suggest moderate (50-69%) stenosis in the proximal right ICA. Pleas e corroborate with the recent CT angiography findings which are generally more accurate. Criteria for Assigning % of Stenosis / Diameter reduction (Estimation based on the indirect measurements of the internal carotid artery velocities (ICA PSV). 1. Normal (no stenosis)=ICA PSV < 125 cm/s: ratio < 2.0: ICA EDV<40 cm/s. 2. Less than 50% stenosis=ICA PSV < 125 cm/s: ratio < 2.0: ICA EDV<40 cm/s. 3. 50 to 69% stenosis=ICA PSV of 125 to 230 cm/s: ration 2.0 ? 4.0: ICA EDV 40-100 cm/s. 4. Greater than 70% stenosis to near occlusion= ICA PSV > 230 cm/s: ratio > 4.0: ICA EDV > 100 cm/s. 5. Near occlusion= ICA PSV velocities may be low or undetectable: variable ratio and ICA EDV. 6. Total occlusion=unable to detect flow.
--- NOTE | 2019-06-11 11:47 | P.HPIM ---
History of Present Illness 79-year-old male came in with the sudden onset of last revision in the left half of the visual almonte found to have left homonymous hemianopsia does have history of hypertension initially felt dizzy with posterior headache followed by left homonymous hemianopsia. Patient denied any other weakness denied any other sensory symptoms.Abnormality. Patient was started on aspirin here. Lipase panel is not available at this time patient had a CT angios, CT of the head without contrast.noted ultrasound is pending and patient on all this evaluation is found to have proximal right internal carotid artery stenosis with mild to moderate intracranial bilateral internal carotid stenosis and left P2 stenosis. Now these explains the homonymous hemianopsia. Patient to baseline creatinine is around 0.9 now has gone up to 1.3, DARRELL inhibitor and the diuretic combination blood pressure. He is taking at home is being discontinued at this time to allow permissive hypertensionfor acute cerebrovascular accident and also because of acute renal failure. Review of Systems REVIEW OF SYSTEMS: CONSTITUTIONAL: No fever, no malaise, no fatigue. HEENT: No recent visual problems or hearing problems. Denied any sore throat. CARDIOVASCULAR: No chest pain, orthopnea, PND, no palpitations, no syncope. PULMONARY: No shortness of breath, no cough, no hemoptysis. GASTROINTESTINAL: No diarrhea, no nausea, no vomiting, no abdominal pain. NEUROLOGICAL: no weakness, no numbness. HEMATOLOGICAL: Denies any bleeding or petechiae. GENITOURINARY: Denies any burning micturition, frequency, or urgency. MUSCULOSKELETAL/RHEUMATOLOGICAL: Denies any joint pain, swelling, or any muscle pain. ENDOCRINE: Denies any polyuria or polydipsia. The rest of the 14-point review of systems is negative. Past Medical History Past Medical History: GERD/Reflux, Prostate Disorder Additional Past Medical History / Comment(s): insomnia, History of Any Multi-Drug Resistant Organisms: None Reported Past Surgical History: Appendectomy, Joint Replacement Additional Past Surgical History / Comment(s): L total knee arthroplasty, bilateral cataract removal with lens implants. Past Anesthesia/Blood Transfusion Reactions: No Reported Reaction Past Psychological History: No Psychological Hx Reported Additional Psychological History / Comment(s): Pt resides with his spouse. He is independent. Smoking Status: Never smoker Past Alcohol Use History: Occasional Additional Past Alcohol Use History / Comment(s): Pt started smoking in 6 and quit in 2000. States drinking a glass of wine every night. Past Drug Use History: None Reported - Past Family History Mother Family Medical History: No Reported History Additional Family Medical History / Comment(s): Mother lived to be 93 yrs old. Father Family Medical History: Cancer Additional Family Medical History / Comment(s): Father of prostrate cancer at the age of 64yrs. Medications and Allergies Home Medications Medication Instructions Recorded Confirmed Type Omeprazole 20 mg PO DAILY 08/24/18 06/10/19 History Temazepam [Restoril] 30 mg PO HS PRN 08/24/18 06/10/19 History Ciprofloxacin HCl [Cipro] 500 mg PO BID 06/10/19 06/10/19 History Finasteride [Proscar] 5 mg PO DAILY 06/10/19 06/10/19 History Lisinopril-Hctz 20-25 mg 1 tab PO DAILY 06/10/19 06/10/19 History [Zestoretic 20-25] Meclizine [Antivert] 25 mg PO TID 06/10/19 06/10/19 History Allergies Allergy/AdvReac Type Severity Reaction Status Date / Time Penicillins Allergy Rash/Hives Verified 06/10/19 22:12 Physical Exam Vitals: Vital Signs Temp Pulse Pulse Resp BP BP Pulse Ox 06/11/19 08:00 79 20 154/75 97 06/11/19 01:45 97.8 F 64 16 169/81 99 06/11/19 00:30 63 20 150/87 06/11/19 00:20 70 21 150/87 06/11/19 00:10 64 20 102/90 06/11/19 00:00 62 13 140/77 06/10/19 23:50 65 19 140/77 06/10/19 23:40 64 19 157/123 06/10/19 23:30 66 17 169/93 06/10/19 23:20 169/93 06/10/19 23:10 70 23 144/78 06/10/19 23:00 62 20 151/83 06/10/19 22:50 64 16 151/83 06/10/19 22:40 64 16 147/85 06/10/19 22:30 62 20 147/79 06/10/19 22:24 71 38 H 147/79 06/10/19 22:20 66 20 147/79 06/10/19 22:10 69 11 L 133/77 06/10/19 22:00 64 11 L 136/74 06/10/19 21:50 66 10 L 136/74 06/10/19 21:40 67 21 140/82 06/10/19 21:30 67 23 147/82 06/10/19 21:20 67 17 147/82 06/10/19 21:10 150/84 06/10/19 21:00 77 29 H 162/96 06/10/19 20:56 20 06/10/19 20:48 98.3 F 77 18 140/74 98 Intake and Output 06/10/19 06/11/19 06/11/19 22:59 06:59 14:59 Output Total 0 Balance 0 Output: Urine 0 Other: Voiding Method Toilet Weight 74.843 kg 76 kg PHYSICAL EXAMINATION: GENERAL: The patient is alert and oriented x3, not in any acute distress. Well developed, well nourished. HEENT: Pupils are round and equally reacting to light. EOMI. No scleral icterus. No conjunctival pallor. Normocephalic, atraumatic. No pharyngeal erythema. No thyromegaly. CARDIOVASCULAR: S1 and S2 present. No murmurs, rubs, or gallops. PULMONARY: Chest is clear to auscultation, no wheezing or crackles. ABDOMEN: Soft, nontender, nondistended, normoactive bowel sounds. No palpable organomegaly. MUSCULOSKELETAL: No joint swelling or deformity. EXTREMITIES: No cyanosis, clubbing, or pedal edema. NEUROLOGICAL: left homonymous hemianopsia without any other focal weakness or numbness SKIN: No rashes. Results CBC & Chem 7: 06/10/19 21:04 06/10/19 21:04 Labs: Abnormal Lab Results - Last 24 Hours (Table) 06/10/19 06/11/19 Range/Units 21:04 01:52 BUN 27 H (9-20) mg/dL Creatinine 1.38 H (0.66-1.25) mg/dL POC Glucose (mg/dL) 179 H (75-99) mg/dL Thrombosis Risk Factor Assmnt - Choose All That Apply Any of the Below Risk Factors Present?: No Other Risk Factors: Yes Each Risk Factor Represents 3 Points: Age 75 years or older Thrombosis Risk Factor Assessment Total Risk Factor Score: 3 Thrombosis Risk Factor Assessment Level: Moderate Risk Assessment and Plan Plan: acute cerebrovascular accident: probably ischemic involving the posterior circulation will be obtained echocardiogram carotid Doppler and MRI of the brain without contrast will be obtained.vascular surgery was consulted because of carotid occlusion as mentioned above patient will be continued on aspirin and statin if LDL is greater than 70.patient's symptoms are better compared to yesterday he still has little bit of blurry vision much improved compared to yesterday -Acute renal failure secondary to DARRELL inhibitor and hydrochlorothiazide which will be held and will monitor basic metabolic profile -gastroesophageal reflux disease -benign prostatic hypertrophy DVT prophylaxis early ambulation
--- NOTE | 2019-06-11 12:03 | P.GSCN ---
History of Present Illness Consult date: 06/11/19 Reason for Consult: Right carotid stenosis History of present illness: The patient is a 79-year-old male with a past medical history of hypertension, GERD, insomnia who came to the ER after sudden onset of visual loss of the left half of his visual almonte. He was out working on his tractor, disassembling the rotary blades and was unable to get the third one. He said it was quite strenuous work at that time. He got up and began to walk and ran into something he did not see was there. He denies any weakness or changes in speech. He den ies any facial droop. He has never had an issue with a stroke in the past. He is active otherwise. He denies any chest pains or shortness of breath. He denies any nausea vomiting or diarrhea. Past Medical History Past Medical History: GERD/Reflux, Prostate Disorder Additional Past Medical History / Comment(s): insomnia, History of Any Multi-Drug Resistant Organisms: None Reported Past Surgical History: Appendectomy, Joint Replacement Additional Past Surgical History / Comment(s): L total knee arthroplasty, bilateral cataract removal with lens implants. Past Anesthesia/Blood Transfusion Reactions: No Reported Reaction Past Psychological History: No Psychological Hx Reported Additional Psychological History / Comment(s): Pt resides with his spouse. He is independent. Smoking Status: Former smoker (Quit in the 60s) Past Alcohol Use History: Occasional Additional Past Alcohol Use History / Comment(s): Pt started smoking in 6 and quit in 2000. States drinking a glass of wine every night. Past Drug Use History: None Reported - Past Family History Mother Family Medical History: No Reported History Additional Family Medical History / Comment(s): Mother lived to be 93 yrs old. Father Family Medical History: Cancer Additional Family Medical History / Comment(s): Father of prostrate cancer at the age of 64yrs. Medications and Allergies Home Medications Medication Instructions Recorded Confirmed Type Omeprazole 20 mg PO DAILY 08/24/18 06/10/19 History Temazepam [Restoril] 30 mg PO HS PRN 08/24/18 06/10/19 History Ciprofloxacin HCl [Cipro] 500 mg PO BID 06/10/19 06/10/19 History Finasteride [Proscar] 5 mg PO DAILY 06/10/19 06/10/19 History Lisinopril-Hctz 20-25 mg 1 tab PO DAILY 06/10/19 06/10/19 History [Zestoretic 20-25] Meclizine [Antivert] 25 mg PO TID 06/10/19 06/10/19 History Allergies Allergy/AdvReac Type Severity Reaction Status Date / Time Penicillins Allergy Rash/Hives Verified 06/10/19 22:12 Surgical - Exam Vital Signs Temp Pulse Resp BP Pulse Ox 98.3 F 77 18 140/74 98 06/10/19 20:48 06/10/19 20:48 06/10/19 20:48 06/10/19 20:48 06/10/19 20:48 Gen. is a pleasant cooperative male in no acute distress resting comfortably in bed HEENT is normocephalic, atraumatic extraocular Motion intact Heart is regular in rate and rhythm Lungs are clear bilaterally, no work of breathing Abdomen is soft, nontender, nondistended Extremities no clubbing, cyanosis, or edema. Palpable radial, femoral, dorsalis pedis and posterior tibial pulses bilaterally Equal strength bilaterally. Cranial nerves II through XII grossly intact Results - Labs 06/10/19 21:04 06/10/19 21:04 Abnormal Lab Results - Last 24 Hours (Table) 06/10/19 06/11/19 Range/Units 21:04 01:52 BUN 27 H (9-20) mg/dL Creatinine 1.38 H (0.66-1.25) mg/dL POC Glucose (mg/dL) 179 H (75-99) mg/dL Diabetes panel 06/10/19 Range/Units 21:04 Sodium 138 (137-145) mmol/L Potassium 4.8 (3.5-5.1) mmol/L Chloride 100 (98-107) mmol/L Carbon Dioxide 26 (22-30) mmol/L BUN 27 H (9-20) mg/dL Creatinine 1.38 H (0.66-1.25) mg/dL Glucose 94 (74-99) mg/dL Calcium 8.6 (8.4-10.2) mg/dL AST 35 (17-59) U/L ALT 36 (21-72) U/L Alkaline Phosphatase 63 (38-126) U/L Total Protein 7.1 (6.3-8.2) g/dL Albumin 4.2 (3.5-5.0) g/dL Calcium panel 06/10/19 Range/Units 21:04 Calcium 8.6 (8.4-10.2) mg/dL Albumin 4.2 (3.5-5.0) g/dL Pituitary panel 06/10/19 Range/Units 21:04 Sodium 138 (137-145) mmol/L Potassium 4.8 (3.5-5.1) mmol/L Chloride 100 (98-107) mmol/L Carbon Dioxide 26 (22-30) mmol/L BUN 27 H (9-20) mg/dL Creatinine 1.38 H (0.66-1.25) mg/dL Glucose 94 (74-99) mg/dL Calcium 8.6 (8.4-10.2) mg/dL Adrenal panel 06/10/19 Range/Units 21:04 Sodium 138 (137-145) mmol/L Potassium 4.8 (3.5-5.1) mmol/L Chloride 100 (98-107) mmol/L Carbon Dioxide 26 (22-30) mmol/L BUN 27 H (9-20) mg/dL Creatinine 1.38 H (0.66-1.25) mg/dL Glucose 94 (74-99) mg/dL Calcium 8.6 (8.4-10.2) mg/dL Total Bilirubin 0.4 (0.2-1.3) mg/dL AST 35 (17-59) U/L ALT 36 (21-72) U/L Alkaline Phosphatase 63 (38-126) U/L Total Protein 7.1 (6.3-8.2) g/dL Albumin 4.2 (3.5-5.0) g/dL - Imaging Additional studies: CT angiogram is reviewed. There is an eccentric right ICA plaque that is focal. There is also some bilateral stenosis of the PT regions bilaterally Ultrasound is reviewed. Peak systolic velocity on the right of 204, a ratio of 2.4 correlating with 50-69%, likely closer to the mid 60s Assessment and Plan Assessment: New-onset left homonymous hemianopsia, suspected acute CVA per neurology. Severe proximal NERIS stenosis, asymptomatic. Discordance of ultrasound to CT angiogram Hypertension GERD Plan: At this point given the distribution of his CVA it is not related to his carotid artery. This is discussed at length with the neurologist. Further workup from that standpoint is pending. There is no plans for intervention of the carotid artery currently area there is discordance between the ultrasound and the CT angiogram. As an outpatient the next step would be to go forth with a carotid angiogram, as a gold standard to determine the actual degree of stenosis. Since he is a systematic from this carotid artery stenosis at this time we feel comfortable performing this on an outpatient basis. Would recommend aspirin.
[2019-06-11 12:43] LABS: Cholesterol 153 mg/dL (<200); HDL Cholesterol 38 mg/dL (40-60); LDL Cholesterol,Calculated 86 mg/dL (0-99); Triglycerides 146 mg/dL (<150)
--- NOTE | 2019-06-11 17:47 | MR ---
EXAMINATION TYPE: MR brain wo con DATE OF EXAM: 06/11/2019 COMPARISON: None HISTORY: left homonymous hemianopsia, acute Standard multiplanar, multisequence MRI departmental protocol Multiplanar, multisequence images of the brain were acquired. Diffusion weighted imaging was performe d. FINDINGS: On the T2 and FLAIR and diffusion images there is some patchy nodular increased signal in t he medial aspect right occipital lobe consistent with acute or subacute cortical infarct. Area overal l measures 3.5 x 2 cm. There is no midline shift. There is no sign of intracranial hemorrhage. There is diffuse cerebral cortical atrophy. There is thinning of the corpus callosum. On the FLAIR im ages there is small foci of increased signal in the jimbo bilaterally. These measure up to 7 mm. There is focal mucosal thickening in the right lateral frontal sinus. There is a 5 mm focus of increased s ignal in the posterior aspect of the right thalamus on the FLAIR images. On the FLAIR images there ar e scattered multiple foci of increased signal at the white matter both parietal lobes adjacent to the ventricles that measure up to 5 mm. Total number is less than 10 and probably relates to chronic sma ll vessel ischemia. IMPRESSION: There is evidence of an acute or subacute right occipital lobe cortical infarct. Small mucus retention cyst right maxillary sinus. Brainstem high signal foci suggestive of chronic sm all vessel ischemia. Similar small focus in the posterior right thalamus. Periventricular scattered small foci of increased signal probably due to chronic small vessel ischemi a. Demyelinating disease is not excluded.
[2019-06-11 19:54] VITALS: RESP 18; TEMP 98.2
[2019-06-12] MEDS ORDERED: ASPIRIN 325 MG TAB PO SCH ×2 (01:04→09:00)
[2019-06-12 07:05] LABS: Potassium 4.2 mmol/L (3.5-5.1)
--- NOTE | 2019-06-12 08:23 | P.PN ---
Subjective Progress Note Date: 06/12/19 Patient seen and examined. Overall feeling better. Blurred vision is slightly improving Objective - Vital Signs Vital signs: Vital Signs Temp 98.2 F 06/12/19 04:00 Pulse 82 06/12/19 04:00 Resp 18 06/12/19 04:00 BP 115/69 06/12/19 04:00 Pulse Ox 97 06/12/19 04:00 Intake & Output 06/11/19 06/12/19 06/12/19 18:59 06:59 18:59 Intake Total 960 480 Balance 960 480 Weight 76 kg 73.5 kg Intake: Oral 960 480 Other: # Voids 2 1 - Exam General no acute distress was sequentially HEENT normocephalic atraumatic extra motion intact Heart regular Lungs clear Abdomen soft nontender nondistended Motor sensory intact bilateral - Labs CBC & Chem 7: 06/10/19 21:04 06/12/19 06:32 Labs: Abnormal Lab Results - Last 24 Hours (Table) 06/11/19 06/12/19 Range/Units 06:00 06:32 BUN 22 H (9-20) mg/dL Glucose 101 H (74-99) mg/dL LDL Cholesterol, Calc 104 H (0-99) mg/dL HDL Cholesterol 38 L (40-60) mg/dL Assessment and Plan Assessment: New-onset left homonymous hemianopsia, suspected acute CVA per neurology. Severe proximal NERIS stenosis, asymptomatic. Discordance of ultrasound to CT angiogram Hypertension GERD Plan: Reviewed the ultrasound findings and computed tomography scan with the patient. Then discussed with the neurologist this does seem to be in a systematic finding of right ICA stenosis therefore we will plan on any further workup as an outpatient. We will plan on a carotid angiogram due to the discordance. He should be maintained on aspirin and a statin medication. He can folllow up in the office in ~2 weeks. He seemingly understands and is willing to proceed. We will sign off at this time. Please call with any questions
[2019-06-12] MEDS: MECLIZINE 25 MG TAB PO SCH (09:42)
[2019-06-12] MEDS: PANTOPRAZOLE 40 MG TABLET PO SCH (09:42)
[2019-06-12] MEDS: FINASTERIDE 5 MG TAB PO SCH (09:42)
[2019-06-12 10:29] VITALS: BP 112/63; PULSE 91
--- NOTE | 2019-06-12 11:08 | P.PN ---
Subjective Progress Note Date: 06/12/19 Principal diagnosis: Left homonymous hemianopsia due to acute right occipital ischemic infarct NERIS stenosis Vascular follow-up. MRI Brain. TTE done but not read. Vision some improvement but not back to normal. No other neuro c/o. Objective - Vital Signs Vital signs: Vital Signs Temp 98.2 F 06/12/19 08:10 Pulse 91 06/12/19 08:10 Resp 18 06/12/19 08:10 BP 112/63 06/12/19 08:10 Pulse Ox 96 06/12/19 08:10 Intake & Output 06/11/19 06/12/19 06/12/19 18:59 06:59 18:59 Intake Total 960 480 480 Balance 960 480 480 Weight 76 kg 73.5 kg Intake: Oral 960 480 480 Other: # Voids 2 1 - Exam Gen NAD Pleasant and cooperative MS A+Ox4 Normal fluency Able to follow all commands CN PERRL Left HH no APD EOMI no nystagmus or DONAVON No facial asymmetry Masseter's symmetric Hearing intact to normal voice bilaterally Speech not dysarthric Equal elevation of palate Tongue midline Sym shrug and SCM bilaterally Motor Normal bulk/tone No pronator or tremors Strength 5/5 sym throughout Sens Intact to LT x4 No neglect or extinction Coord No dysmetria on FTN bilaterally DTRs 2+/4 sym throughout Toes downgoing bilaterally No clonus at achilles Gait Deferred NIHSS 3.2=2 - Labs CBC & Chem 7: 06/10/19 21:04 06/12/19 06:32 Labs: Abnormal Lab Results - Last 24 Hours (Table) 06/11/19 06/12/19 Range/Units 06:00 06:32 BUN 22 H (9-20) mg/dL Glucose 101 H (74-99) mg/dL LDL Cholesterol, Calc 104 H (0-99) mg/dL HDL Cholesterol 38 L (40-60) mg/dL - Imaging and Cardiology MRI - head: image reviewed (+DWI in right occipital area c/w acute ischemic infarct) Assessment and Plan Assessment: New-onset left homonymous hemianopsia due to acute right occipital ischemic infarct, likely due to intracranial athero less likely proximal embolic phenomenon. 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 Plan: -MRI Brain wo karen reviewed with patient and . -TTE done but report pending. -Carotid duplex and CTA did show some discrepancy between degree of stenosis. Vascular surgery will plan further testing as outpatient. This is a case of asymptomatic NERIS stenosis. -ASA 325mg/day. Discussed with vascular surgery who does not see a role for DAPT for his asymptomatic NERIS stenosis at this point. -Goal LDL <70. Since his LDL is 104, will start atorvastatin 40mg po qhs. -May gradually lower BP to normotensive range but avoid hypotension. -PT/OT/SP per protocol. -Cannot drive if he has persistent homonymous hemianopsia. 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 -Stroke education given to patient. -DVT prophylaxis. -Length discussion held with patient/family at bedside. All questions answered. -Stable for discharge from acute neuro standpoint as soon as TTE is cleared by primary team. No further inpatient neuro recs at this time. Will revisit patient prn. Please call with new ?. Thank you again for this consultation. Time with Patient: Greater than 30 (Time spent in direct patient care, greater than 50% of which was spent in [id number] counseling and coordination of care: 35 minutes)
--- NOTE | 2019-06-12 13:00 | ECHOF ---
Referral Reason:CVA MEASUREMENTS -------- HEIGHT: 172.7 cm WEIGHT: 75.7 kg BP: 169/81 RVIDd: 3.1 cm (< 3.3) IVSd: 1.2 cm (0.6 - 1.1) LVIDd: 3.9 cm (3.9 - 5.3) LVPWd: 1.4 cm (0.6 - 1.1) IVSs: 1.4 cm LVIDs: 2.5 cm LVPWs: 0.9 cm LA Diam: 3.4 cm (2.7 - 3.8) LAESV Index (A-L): 24.44 ml/m Ao Diam: 3.4 cm (2.0 - 3.7) AV Cusp: 2.2 cm (1.5 - 2.6) LA Diam: 3.4 cm (2.7 - 3.8) MV EXCURSION: 23.254 mm (> 18.000) MV EF SLOPE: 128 mm/s (70 - 150) EPSS: 0.5 cm MV E Matthew: 0.57 m/s MV DecT: 170 ms MV A Matthew: 0.71 m/s MV E/A Ratio: 0.80 RAP: 5.00 mmHg RVSP: 14.10 mmHg FINDINGS -------- Sinus rhythm. This was a technically adequate study. LV size, wall thickness and systolic function are normal, with an EF greater than 55%. The left joaquín tricular size is normal. The right ventricle is normal in size. The left atrial size is normal. Normal LA size by volume 22+/-6 ml/m2. The right atrial size is normal. The aortic valve is trileaflet, and appears structurally normal. No aortic stenosis or regurgitation. Mild mitral annular calcification present. There is trace mitral regurgitation. Mild tricuspid regurgitation present. There is no evidence of pulmonary hypertension. The right v entricular systolic pressure, as measured by Doppler, is 14.10mmHg. There is no pulmonic regurgitation present. The aortic root size is normal. There is no pericardial effusion. CONCLUSIONS -------- 1. LV size, wall thickness and systolic function are normal, with an EF greater than 55%. 2. The left ventricular size is normal. 3. The right ventricle is normal in size. 4. The left atrial size is normal. 5. Normal LA size by volume 22+/-6 ml/m2. 6. The right atrial size is normal. 7. The aortic valve is trileaflet, and appears structurally normal. No aortic stenosis or regurgitati on. 8. Mild mitral annular calcification present. 9. There is trace mitral regurgitation. 10. Mild tricuspid regurgitation present. 11. There is no evidence of pulmonary hypertension. 12. The right ventricular systolic pressure, as measured by Doppler, is 14.10mmHg. 13. There is no pulmonic regurgitation present. 14. The aortic root size is normal. 15. There is no pericardial effusion. MACHINIST INSTRUCTOR: Vonda Sullivan RDCS
--- NOTE | 2019-06-12 19:57 | P.DS ---
Providers Date of admission: 06/11/19 01:05 Expected date of discharge: 06/12/19 Attending physician: Yessi Kearns Consults: 06/11/19 01:03 Consult Physician Routine Consulting Provider: Rubina Hurtado Consult Reason/Comments: Left homonymous hemianopsia Do you want consulting provider notified?: Yes, Notify in am Consult Physician Routine Consulting Provider: Parvin Claros Consult Reason/Comments: Left homonymous hemianopsia Do you want consulting provider notified?: Yes, Notify in am Primary care physician: Kerwin [facility] Course: Final Diagnosis Acute Cerebral vascular accident: probably ischemic involving the posterior circulation. Obtained an echocardiogram with an EF of over 55%. MRI of the brain without contrast shows evidence of an acute or subacute right occipital lobe cortical infarct. Vascular surgery was consulted because of the carotid occlusion and patient will be continued on Aspirin and Lipitor 40 mg daily if the LDL is greater than 70. Current LDL is 104. Patients symptoms are better compared to yesterday. His left vision is improving and reports less blurring of the vision. Acute renal failure secondary to the combination DARRELL inhibitor and HCTZ which was held and BMP was being monitored closely. Current Creatinine is 1.11. Gastroesophageal reflux disease Benign prostatic hypertrophy DVT prophylaxis was with early ambulation Discharge disposition: Patient is being discharged in a stable condition with a guarded prognosis to home and will follow up with vascular surgery and neurology on an outpatient basis. History of present illness This is a 79 year old male that was admitted for left homonymous hemianopsia with a sudden onset of left side vision blurring with dizziness and headache. Patient was found to have acute CVA and acute renal failure. Neurology and vascular surgery were following closely. Patient is sitting at the side of the bed in no acute distress with his at the bedside. Patient states that his blurring of his vision is improving but still present. Patient denies any headache, shortness of breath, chest pain, or palpitations at this time. Patient remains afebrile. Patient states he was told he will be going home today from neurology's stand point. Vascular surgery has cleared him for discharge as well and will follow-up in an outpatient basis. Patient states that he is ready to go home. Discussed with the patient at length about driving status and should not be driving with this left side visual disturbance at this time. Patient verbalized understanding and agrees with the plan. On exam, the patient is alert and oriented and appears in no acute distress. Vital signs are stable. BP is 112/63, pulse is 91, resp are 18, temp is 98.2 F, and oxygen saturation is 96% on room air. Cardio S1 and S2 are normal. Respiratory is clear to auscultation. Abdomen is soft and non-tender. Nervous system shows no new focal deficits with a steady gait. Blurriness of the vision is still present, but improving. Please refer to the medication reconciliation sheet for a list of medications. Patient Condition at Discharge: Stable Plan - Discharge Summary Discharge Rx Participant: No New Discharge Prescriptions: New Aspirin 325 mg PO DAILY #30 tab Atorvastatin [Lipitor] 40 mg PO HS #30 tab Continue Temazepam [Restoril] 30 mg PO HS PRN PRN Reason: Insomnia Omeprazole 20 mg PO DAILY Meclizine [Antivert] 25 mg PO TID Lisinopril-Hctz 20-25 mg [Zestoretic 20-25] 1 tab PO DAILY Ciprofloxacin HCl [Cipro] 500 mg PO BID Finasteride [Proscar] 5 mg PO DAILY Discharge Medication List Omeprazole 20 mg PO DAILY 08/24/18 [History] Temazepam [Restoril] 30 mg PO HS PRN 08/24/18 [History] Ciprofloxacin HCl [Cipro] 500 mg PO BID 06/10/19 [History] Finasteride [Proscar] 5 mg PO DAILY 06/10/19 [History] Lisinopril-Hctz 20-25 mg [Zestoretic 20-25] 1 tab PO DAILY 06/10/19 [History] Meclizine [Antivert] 25 mg PO TID 06/10/19 [History] Aspirin 325 mg PO DAILY #30 tab 06/12/19 [Rx] Atorvastatin [Lipitor] 40 mg PO HS #30 tab 06/12/19 [Rx] Follow up Appointment(s)/Referral(s): Kerwin Mckeon MD [Primary Care Provider] - 06/14/19 1:50 pm (.) Alexis Velazquez MD [STAFF PHYSICIAN] - 06/19/19 11:00 am Randall Jay DO [STAFF PHYSICIAN] - 06/25/19 11:15 am (With Dr. Claros.) Patient Instructions/Handouts: Heart Healthy Diet (DC), Carotid Artery Disease (DC), Ischemic Stroke (DC), Angiogram (DC) Activity/Diet/Wound Care/Special Instructions: Activity limited until follow-up continue heart healthy diet Follow up with pcp as well as vascular surgery as scheduled. Discharge Disposition: HOME SELF-CARE
[2019-06-12] MEDS ORDERED: ATORVASTATIN 40 MG TAB PO SCH (21:00)
== END 2019-06-12 12:02 | disposition home or self-care (01) | DRG 65 ==
LOC: EC 20:47 → 3SCARD 06-11 01:05
PROVIDERS: ADMIT Hospitalist; ATTEND Hospitalist
DX: I63.131 Cerebral infarction due to embolism of right carotid artery (principal); N17.9 Acute kidney failure, unspecified; H53.462 Homonymous bilateral field defects, left side; I10 Essential (primary) hypertension; K21.9 Gastro-esophageal reflux disease without esophagitis; N40.0 Benign prostatic hyperplasia without lower urinary tract symptoms; T46.4X5A Adverse effect of angiotensin-converting-enzyme inhibitors, initial encounter; Z79.82 Long term (current) use of aspirin; Z79.899 Other long term (current) drug therapy; Z87.891 Personal history of nicotine dependence; Z98.42 Cataract extraction status, left eye; Z98.41 Cataract extraction status, right eye; Z96.1 Presence of intraocular lens; Z96.652 Presence of left artificial knee joint; Z88.0 Allergy status to penicillin; R29.702 NIHSS score 2
CPT/HCPCS: 36415; 70450; 70496; 70498; 70551; 71046; 80048; 80053; 80061; 82550; 84484; 85025; 85610; 85730; 93005; 93306; 93880; 96360; 96361; 99285

== ENCOUNTER → 2019-06-29 | Outpatient (CLI) | payer MEDICARE | END | disposition home or self-care (01) | LOC: LABWHC1 12:30 | DX: I49.1 Atrial premature depolarization (principal); I63.9 Cerebral infarction, unspecified; K21.9 Gastro-esophageal reflux disease without esophagitis; N40.0 Benign prostatic hyperplasia without lower urinary tract symptoms; I77.89 Other specified disorders of arteries and arterioles | CPT/HCPCS: 86850; 86900; 86901 ==

== ENCOUNTER 2022-10-28 09:47 | Emergency (ER) | payer MEDICARE ==
[2022-10-28 09:54] VITALS: RESP 18; TEMP 98
[2022-10-28] MEDS ORDERED: MORPHINE SULFATE 2 MG/ML SYRINGE IV STA (10:03)
[2022-10-28 10:04] LABS: Glucose,Whole Blood 76 mg/dL (70-110)
--- NOTE | 2022-10-28 10:09 | ED ---
General Adult HPI - General Chief complaint: Neuro Symptoms/Deficit Stated complaint: Fall,AMS Time Seen by Provider: 10/28/22 09:57 Source: patient, RN notes reviewed, old records reviewed Mode of arrival: ambulatory Limitations: no limitations - History of Present Illness Initial comments: Patient is a 82-year-old male who presents emergency Department following a fall on blood thinners. Fall occurred at approximately 8:45 AM. I evaluated the patient at approximately 10 AM when he was brought back from triage. He was taken to trauma bay #1. Patient's presents with patient. He is currently complaining of a mild posterior headache as well as upper lumbar and lower thoracic spinal tenderness to palpation. Denies any back pain. Denies any abdominal pain. Slipped on ice while going out to his car this morning. He landed on his back. Patient's his stated that the patient has been acting more slowly indifferently since the fall. He is slow to respond to questions. She became concerned because he is on Eliquis for atrial fibrillation. She brought him here for further evaluation. Patient states his lower back hurt, as well as his back of his head but otherwise has no other acute complaints at this time. He is fully alert and oriented. Presents for further evaluation at this time. Denies abdominal pain, chest pain, shortness of breath. Denies any hip pain, leg pain, arm pain. He'll move all 4 extremities. Is a little bit slow to move.Patient is uncertain regarding loss of consciousness. Baseline is alert and oriented 4. No deficits. Ambulates without a cane or walker. - Related Data Home Medications Medication Instructions Recorded Confirmed Omeprazole 20 mg PO DAILY 08/24/18 06/10/19 Temazepam [Restoril] 30 mg PO HS PRN 08/24/18 06/10/19 Ciprofloxacin HCl [Cipro] 500 mg PO BID 06/10/19 06/10/19 Finasteride [Proscar] 5 mg PO DAILY 06/10/19 06/10/19 Lisinopril-Hctz 20-25 mg 1 tab PO DAILY 06/10/19 06/10/19 [Zestoretic 20-25] Meclizine [Antivert] 25 mg PO TID 06/10/19 06/10/19 Previous Rx's Medication Instructions Recorded Aspirin 325 mg PO DAILY #30 tab 06/12/19 Atorvastatin [Lipitor] 40 mg PO HS #30 tab 06/12/19 Allergies Allergy/AdvReac Type Severity Reaction Status Date / Time Penicillins Allergy Rash/Hives Verified 10/28/22 09:54 Review of Systems ROS Statement: Those systems with pertinent positive or pertinent negative responses have been documented in the HPI. Review of Systems: CONST: Denies fever EYES: Denies blurry vision ENT: Denies nasal congestion C/V: Denies Chest pain RESP: Denies shortness of breath GI: Denies abdominal pain : Denies dysuria SKIN: Denies rash. MSK: Endorses back pain NEURO: Denies headache ROS Other: All systems not noted in ROS Statement are negative. Past Medical History Past Medical History: CVA/TIA, GERD/Reflux, Prostate Disorder Additional Past Medical History / Comment(s): insomnia, History of Any Multi-Drug Resistant Organisms: None Reported Past Surgical History: Appendectomy, Joint Replacement Additional Past Surgical History / Comment(s): L total knee arthroplasty, bilateral cataract removal with lens implants. Past Anesthesia/Blood Transfusion Reactions: No Reported Reaction Past Psychological History: No Psychological Hx Reported Smoking Status: Current every day smoker, Never smoker Past Alcohol Use History: Occasional Past Drug Use History: None Reported - Past Family History Mother Family Medical History: No Reported History Additional Family Medical History / Comment(s): Mother lived to be 93 yrs old. Father Family Medical History: Cancer Additional Family Medical History / Comment(s): Father of prostrate cancer at the age of 64yrs. General Exam - General Exam Comments Initial Comments: General: Appears in no acute distress. HEAD: Normal with no signs of head trauma. Negative Perez sign, negative raccoon eye, negative hemotympanum. EYES: PERRLA, EOMI, conjunctiva normal, no discharge. Duples are 2 mm and equal bilaterally. ENT: Hearing grossly intact, normal oropharynx. RESPIRATORY: Clear breath sounds bilaterally. No wheezes, rales, or rhonchi. C/V: Irregular rate and rhythm. S1 and S2 auscultated. Peripheral pulses are 2+ and intact throughout. ABD: Abd is soft, nontender, nondistended EXT: Normal range of motion, no obvious deformity. Pelvis is stable. Midline upper lumbar spine and inferior thoracic spine tenderness to palpation. No cervical spine tenderness to palpation. No step-offs or deformities palpated. No extremity pain. SKIN: No rashes or lesions observed on exposed skin. NEURO: Alert and oriented x 4. Cranial nerves II-XII intact. No focal sensory or strength deficits. NIH of 0. GCS of 15. Somewhat slow to respond to questions but they are appropriate answers. Limitations: no limitations Course Vital Signs 10/28/22 10/28/22 10/28/22 09:51 10:27 10:40 Temperature 98 F Pulse Rate 68 60 67 Respiratory 18 18 18 Rate Blood Pressure 199/80 168/84 169/84 O2 Sat by Pulse 96 95 94 L Oximetry 10/28/22 10/28/22 10/28/22 10:47 11:10 11:15 Temperature Pulse Rate 62 72 76 Respiratory 18 18 Rate Blood Pressure 171/84 155/77 142/73 O2 Sat by Pulse 95 95 95 Oximetry 10/28/22 11:21 Temperature Pulse Rate 75 Respiratory 18 Rate Blood Pressure 133/75 O2 Sat by Pulse 95 Oximetry Medical Decision Making - Medical Decision Making Based on the patient's presentation and physical exam, he is an 82-year-old male who was a fall from standing on blood thinners. He does not meet criteria for trauma activation based on this. He is slightly slow to respond to questioning, however neurological exam is within acceptable limits otherwise. NIH of 0. GCS of 15. We will obtain an altered mental status workup as well as trauma workup. As includes CT brain, C-spine, thoracic spine, lumbar spine, pelvic x- ray and chest x-ray. Basic labs including coags will be obtained. Patient and his are in agreement with this plan. Vital signs are within acceptable l imits. EKG was obtained and was remarkable for atrial fibrillation with no other acute findings. CT imaging was obtained and as interpreted by myself revealed a left parietal small intraparenchymal and tiny subarachnoid hemorrhage present. Radiology called me while I was reviewing the imaging and conveyed this to me as well. Patient is hypertensive at this time with systolics in the 160s and t herefore he will be administered IV labetalol and started on a Cardene drip. I also ordered K Centra to reverse the patient's Eliquis. Head of bed was elevated to [address] C-spine is interpreted by myself revealed no evidence of acute traumatic injury. Remainder of the imaging reports are still pending at this time. Laboratory studies are also pending at this time. I updated the patient as well as his and they were in agreement with this plan. Patient will be transferred to [facility] for escalation of care as he does require neurosurgery present for his intracranial bleed. Neuro status on reevaluation is unchanged. We will obtain better blood pressure control at this time. CT thoracic and lumbar spine was interpreted by myself and reveals degenerative disc disease but no acute findings. Radiology sees bilateral airspace opacities the lower lobes which could represent pneumonia. Patient is not symptomatic. Patient's chest x-ray as interpreted by myself reveals no acute cardiopulmonary process. Airspace opacities noted above are once again seen. Patient is asymptomatic. Pelvis x-ray as interpreted by myself reveals no evidence of acute traumatic injury, fracture. Laboratory studies returned and were remarkable for mildly elevated INR of 1.3. The remainder of the labs are within acceptable limits. I did speak with the [facility] emergency department via transfer line and Dr. Conner accepted the patient. We also reached out to the trauma team at [facility] and I updated Dr. Davila who was in agreement with the plan outlined above. Will hold seizure prophylaxis at this time at their request. Will keep patient's IV's KVO except for the cardene drip. Patient was therefore transferred in serious condition for escalation of care. Blood pressure on the nicardipine drip when transferred was 133/75. The remainder the vital signs within acceptable limits. - Lab Data Result diagrams: 10/28/22 10:08 10/28/22 10:08 Lab Results 10/28/22 10/28/22 10/28/22 Range/Units 10:02 10:08 10:08 WBC 8.7 (3.8-10.6) k/uL RBC 5.51 (4.30-5.90) m/uL Hgb 15.5 (13.0-17.5) gm/dL Hct 46.9 (39.0-53.0) % MCV 85.1 (80.0-100.0) fL MCH 28.1 (25.0-35.0) pg MCHC 33.0 (31.0-37.0) g/dL RDW 13.5 (11.5-15.5) % Plt Count 176 (150-450) k/uL MPV 9.1 Neutrophils % 76 % Lymphocytes % 15 % Monocytes % 6 % Eosinophils % 1 % Basophils % 0 % Neutrophils # 6.6 (1.3-7.7) k/uL Lymphocytes # 1.3 (1.0-4.8) k/uL Monocytes # 0.6 (0-1.0) k/uL Eosinophils # 0.1 (0-0.7) k/uL Basophils # 0.0 (0-0.2) k/uL PT 12.8 H (9.0-12.0) sec INR 1.3 H (<1.2) APTT 26.3 (22.0-30.0) sec Sodium (137-145) mmol/L Potassium (3.5-5.1) mmol/L Chloride (98-107) mmol/L Carbon Dioxide (22-30) mmol/L Anion Gap mmol/L BUN (9-20) mg/dL Creatinine (0.66-1.25) mg/dL Est GFR (CKD-EPI)AfAm (>60 ml/min/1.73 sqM) Est GFR (CKD-EPI)NonAf (>60 ml/min/1.73 sqM) Glucose (74-99) mg/dL POC Glucose (mg/dL) 76 (70-110) mg/dL POC Glu [employer] Faculty Member ID Mynor Medina Plasma Lactic Acid Lee (0.7-2.0) mmol/L Calcium (8.4-10.2) mg/dL Total Bilirubin (0.2-1.3) mg/dL AST (17-59) U/L ALT (4-49) U/L Alkaline Phosphatase (38-126) U/L Ammonia (<30) umol/L Total Protein (6.3-8.2) g/dL Albumin (3.5-5.0) g/dL 10/28/22 10/28/22 Range/Units 10:08 10:08 WBC (3.8-10.6) k/uL RBC (4.30-5.90) m/uL Hgb (13.0-17.5) gm/dL Hct (39.0-53.0) % MCV (80.0-100.0) fL MCH (25.0-35.0) pg MCHC (31.0-37.0) g/dL RDW (11.5-15.5) % Plt Count (150-450) k/uL MPV Neutrophils % % Lymphocytes % % Monocytes % % Eosinophils % % Basophils % % Neutrophils # (1.3-7.7) k/uL Lymphocytes # (1.0-4.8) k/uL Monocytes # (0-1.0) k/uL Eosinophils # (0-0.7) k/uL Basophils # (0-0.2) k/uL PT (9.0-12.0) sec INR (<1.2) APTT (22.0-30.0) sec Sodium 142 (137-145) mmol/L Potassium 3.8 (3.5-5.1) mmol/L Chloride 105 (98-107) mmol/L Carbon Dioxide 30 (22-30) mmol/L Anion Gap 7 mmol/L BUN 15 (9-20) mg/dL Creatinine 1.04 (0.66-1.25) mg/dL Est GFR (CKD-EPI)AfAm 78 (>60 ml/min/1.73 sqM) Est GFR (CKD-EPI)NonAf 68 (>60 ml/min/1.73 sqM) Glucose 91 (74-99) mg/dL POC Glucose (mg/dL) (70-110) mg/dL POC Glu [employer] Faculty Member ID Plasma Lactic Acid Lee 1.1 (0.7-2.0) mmol/L Calcium 8.5 (8.4-10.2) mg/dL Total Bilirubin 1.2 (0.2-1.3) mg/dL AST 25 (17-59) U/L ALT 25 (4-49) U/L Alkaline Phosphatase 109 (38-126) U/L Ammonia <9 (<30) umol/L Total Protein 7.6 (6.3-8.2) g/dL Albumin 4.6 (3.5-5.0) g/dL - EKG Data -: EKG Interpreted by Me EKG Comments: 12-lead Electrocardiogram Interpretation Note EKG was reviewed and interpreted by myself. 12-lead ECG performed at 1003 is interpreted by me as revealing atrial fibrillation at a rate of 67 beats per minute. [place] is normal. Right bundle-branch block is present. QRS durations 132 ms, QTc is 450 ms.. There were no acute ST or T wave abnormalities to suggest myocardial ischemia or injury. Chronic T wave inversion in lead III, somewhat in aVF. R wave progression across the precordium was satisfactory. By my interpretation this EKG is non-diagnostic for acute ischemia. When compared with EKG from May 2019, no significant change. Critical Care Time Critical Care Time: Yes Total Critical Care Time: 35 Critical Care Time: Upon my evaluation, this patient had a high probability of imminent or life- threatening deterioration due to fall and thinners, intracranial hemorrhage, blood thinner use, which required my direct attention, intervention, and personal management. I have personally provided 35 minutes of critical care time exclusive of time spent on separately billable procedures. Time includes review of laboratory data, radiology results, discussion with consultants, and monitoring for potential decompensation. Interventions were performed as documented in my note. Disposition Clinical Impression: Intracranial hemorrhage, Fall Disposition: OTHER INSTITUTION NOT DEFINED Condition: Serious Referrals: Kerwin Mckeon MD [Primary Care Provider] - 1-2 days Time of Disposition: 10:55 - Out of Hospital Transfer - Req. Specs Out of Hospital Transfer - Requested Specifics: Other Emergency Center (Transfer to [facility] for escalation of care.)
[2022-10-28] MEDS ORDERED: ONDANSETRON 4 MG/2 ML VIAL IVP STA (10:14)
[2022-10-28 10:23] LABS: Basophils % (A) 0 %; Eosinophils # (A) 0.1 k/uL (0-0.7); Eosinophils % (A) 1 %; HCT 46.9 % (39.0-53.0); HGB 15.5 gm/dL (13.0-17.5); Lymphocytes # (A) 1.3 k/uL (1.0-4.8); Lymphocytes % (A) 15 %; MCH 28.1 pg (25.0-35.0); MCV 85.1 fL (80.0-100.0); Mean Platelet Volume 9.1; Monocytes # (A) 0.6 k/uL (0-1.0); Monocytes % (A) 6 %; Neutrophils # (A) 6.6 k/uL (1.3-7.7); Neutrophils % (A) 76 %; Platelet Count 176 k/uL (150-450); RBC 5.51 m/uL (4.30-5.90); RDW 13.5 % (11.5-15.5); WBC 8.7 k/uL (3.8-10.6)
[2022-10-28] MEDS ORDERED: Kcentra PER PHARMACY 1 EACH MISC MISCELLANE PRN (10:33)
[2022-10-28] MEDS ORDERED: LABETALOL 5 MG/ML VIAL MDV IVP STA ×2 (10:33→11:00)
[2022-10-28 10:34] LABS: Lactic Acid, Venous 1.1 mmol/L (0.7-2.0)
[2022-10-28 10:35] LABS: Albumin 4.6 g/dL (3.5-5.0); Calcium 8.5 mg/dL (8.4-10.2); Potassium 3.8 mmol/L (3.5-5.1); Total Bilirubin 1.2 mg/dL (0.2-1.3); Total Protein 7.6 g/dL (6.3-8.2)
--- NOTE | 2022-10-28 10:41 | CT ---
EXAMINATION TYPE: CT brain juan c del castillo con DATE OF EXAM: 10/28/2022 COMPARISON: 06/10/2019 HISTORY: Fall, pain CT DLP: 1438.4 mGycm Automated exposure control for dose reduction was used. TECHNIQUE: CT scan of the head and cervical spine are performed without contrast. FINDINGS: There is hyperdensity seen involving the superior left parietal lobe measuring 5 mm suspi cious for a small acute intraparenchymal hemorrhage\contusion. May extend into the subarachnoid space . Dental artifact noted. There is moderate generalized degenerative change. Low-attenuation in the wh ite matter nonspecific but most of the palpable white matter ischemia. Calvarium intact. The globes a re intact and the visualized sinuses are clear. Multilevel degenerative disc disease with the moderate to severe changes C4-5 and C5-C6 with posterio r spondylosis. Assessment of the spinal canal is limited due to artifact and resolution. Multilevel f acet arthropathy. Cannot exclude canal stenosis C4-5 and C5-C6. No acute fracture. IMPRESSION: 1. There is a acute intraparenchymal hemorrhage measuring 5 mm within the superior left parietal gia ex compatible with an intraparenchymal contusion. There may be a tiny component of additional subarac hnoid hemorrhage. No midline shift. 2. Multilevel degenerative disc disease and facet arthropathy. Suspect canal stenosis C4-5 and C5-C6. Foraminal encroachment also suspected. Recommend follow-up MRI.
[2022-10-28] MEDS ORDERED: niCARdipine 20 MG in SODIUM CHLORIDE 0.9% 192 ML IV SCH (10:45)
[2022-10-28 10:49] LABS: INR 1.3 (<1.2); Partial Thromboplastin Time 26.3 sec (22.0-30.0); Prothrombin Time 12.8 sec (9.0-12.0)
--- NOTE | 2022-10-28 10:52 | CT ---
EXAMINATION TYPE: CT thor lumbar spine wo con CT DLP: 1069.6 mGycm, Automated exposure control for dose reduction was used. DATE OF EXAM: 10/28/2022 10:23 AM COMPARISON: None. CLINICAL INDICATION:Male, 82 years old with history of fall, pain; TECHNIQUE: Axial images of the thoracic spine were obtained without contrast. Coronal and sagittal re formats were performed. FINDINGS: The thoracic and lumbar vertebral bodies have preserved heights and alignment. Interverte bral discs and osseous structures have a normal appearance. Scattered osteophyte formation with thick ness phenomenon at L3-L4. Facet joint arthropathy seen throughout the spine. Atherosclerosis of the a rterial vasculature. Bibasilar airspace opacities. Pill-shaped foreign body within the distal esophagus. IMPRESSION: 1. No evidence of fracture. 2. No spinal canal or neural foraminal stenosis is identified. 3. Moderate multilevel disc degeneration changes throughout the spine. 4. Bilateral lower lobe airspace opacities which could represent atelectasis or developing airspace d isease in the setting of aspiration. 5. Ingested medicine/pill in the distal esophagus.
--- NOTE | 2022-10-28 10:53 | XR ---
EXAMINATION TYPE: XR chest 1V portable DATE OF EXAM: 10/28/2022 10:20 AM COMPARISON: Chest radiographs from 06/02/2019 TECHNIQUE: XR chest 1V portable Portable AP radiograph of the chest. CLINICAL INDICATION:Male, 82 years old with history of fall, pain; FINDINGS: Lungs/Pleura: There is no evidence of pleural effusion, focal consolidation, or pneumothorax. Pulmonary vascularity: Unremarkable. Heart/mediastinum: Cardiomediastinal silhouette is enlarged and stable. Musculoskeletal: No acute osseous pathology. IMPRESSION: Bibasilar airspace opacities better appreciated on CT correlate for pneumonia/aspiration.
[2022-10-28] MEDS ORDERED: HUMAN PROTHROMBIN COMPLX IV ONE (11:00)
[2022-10-28] MEDS ORDERED: HUMAN PROTHROMBIN COMPLX 500 UNIT/16 ML VIAL IV ONE (11:00)
--- NOTE | 2022-10-28 11:06 | XR ---
EXAMINATION TYPE: XR pelvis AP view DATE OF EXAM: 10/28/2022 10:24 AM INDICATION: Patient age:Male; 82 years old; Reason for study: fall; [facility]. COMPARISON: None TECHNIQUE: The pelvis was examined in a single projection. FINDINGS: There is no evidence of fracture or dislocation. There is no soft tissue abnormality. No a bnormal calcifications are present. Multilevel degenerative changes of the lower spine. IMPRESSION: No acute osseous pathology.
[2022-10-28 11:22] VITALS: BP 133/75; PULSE 75
== END 2022-10-28 11:28 | disposition other institution (70) ==
LOC: EC 09:47
DX: I62.9 Nontraumatic intracranial hemorrhage, unspecified (principal); M47.819 Spondylosis without myelopathy or radiculopathy, site unspecified; M51.36 Other intervertebral disc degeneration, lumbar region; G45.9 Transient cerebral ischemic attack, unspecified; K21.9 Gastro-esophageal reflux disease without esophagitis; I48.91 Unspecified atrial fibrillation; F17.200 Nicotine dependence, unspecified, uncomplicated; Z79.899 Other long term (current) drug therapy; Z79.01 Long term (current) use of anticoagulants; Z88.0 Allergy status to penicillin; W00.0XXA Fall on same level due to ice and snow, initial encounter
CPT/HCPCS: 36415; 93005; 80053; 82140; 83605; 85025; 85610; 85730; 72170; 71045; 72128; 72125; 72131; 70450; 99291; 96374; 96375 ×4; 96376; J2405; J2270; J7168

== ENCOUNTER 2024-02-10 13:03 | Emergency (ER) | payer MEDICARE ==
--- NOTE | 2024-02-10 13:55 | ED ---
Chest Pain HPI - General Chief Complaint: Chest Pain Stated Complaint: Chest Pain Time Seen by Provider: 02/10/24 13:14 Source: patient, RN notes reviewed, old records reviewed Mode of arrival: wheelchair Limitations: no limitations - History of Present Illness Initial Comments: This is a 83-year-old male to the ER today. This patient presents today for evaluation regards to some chest pains and abdominal pain with persistent weakness persistent abdominal pain patient has no travel history no significant sick contacts patient does have history of irritable bowel syndrome and does have significant gaseous distention at times. Patient did burp and pass gas during transit here. The symptoms began after judaism today. Symptoms are now resolved MD Complaint: chest pain, other (Abdominal pain) -: hour(s) Onset: during rest, during exertion Pain Location: substernal, left chest, epigastric Pain Radiation: none, abdomen Severity: moderate Severity scale (1-10): 7 Quality: sharp Consistency: constant Improves With: nothing Worsens With: nothing Anginal Symptoms: nausea, diaphoresis Other Symptoms: palpitations Treatments Prior to Arrival: none - Related Data Home Medications Medication Instructions Recorded Confirmed Omeprazole 20 mg PO DAILY 08/24/18 06/10/19 Temazepam [Restoril] 30 mg PO HS PRN 08/24/18 06/10/19 Ciprofloxacin HCl [Cipro] 500 mg PO BID 06/10/19 06/10/19 Finasteride [Proscar] 5 mg PO DAILY 06/10/19 06/10/19 Lisinopril-Hctz 20-25 mg 1 tab PO DAILY 06/10/19 06/10/19 [Zestoretic 20-25] Meclizine [Antivert] 25 mg PO TID 06/10/19 06/10/19 Previous Rx's Medication Instructions Recorded Aspirin 325 mg PO DAILY #30 tab 06/12/19 Atorvastatin [Lipitor] 40 mg PO HS #30 tab 06/12/19 Allergies Allergy/AdvReac Type Severity Reaction Status Date / Time Penicillins Allergy Rash/Hives Verified 02/10/24 13:07 Review of Systems ROS Statement: Those systems with pertinent positive or pertinent negative responses have been documented in the HPI. ROS Other: All systems not noted in ROS Statement are negative. EKG Findings - EKG Comments: EKG Findings:: EKG is A-fib 58 QRS 131 QTc 442 - EKG Results: EKG: interpreted by FANNY Past Medical History Past Medical History: Atrial Fibrillation, CVA/TIA, GERD/Reflux, Prostate Disorder Additional Past Medical History / Comment(s): insomnia, History of Any Multi-Drug Resistant Organisms: None Reported Past Surgical History: Appendectomy, Joint Replacement Additional Past Surgical History / Comment(s): L total knee arthroplasty, bilateral cataract removal with lens implants. Past Anesthesia/Blood Transfusion Reactions: No Reported Reaction Past Psychological History: No Psychological Hx Reported Smoking Status: Current every day smoker, Never smoker Past Alcohol Use History: Occasional Past Drug Use History: None Reported - Past Family History Mother Family Medical History: No Reported History Additional Family Medical History / Comment(s): Mother lived to be 93 yrs old. Father Family Medical History: Cancer Additional Family Medical History / Comment(s): Father of prostrate cancer at the age of 64yrs. General Exam Limitations: no limitations General appearance: alert, in no apparent distress Head exam: Present: atraumatic, normocephalic, normal inspection Eye exam: Present: normal appearance, PERRL, EOMI. Absent: scleral icterus, conjunctival injection, periorbital swelling ENT exam: Present: normal exam, mucous membranes moist Neck exam: Present: normal inspection. Absent: tenderness, meningismus, lymphadenopathy Respiratory exam: Present: normal lung sounds bilaterally. Absent: respiratory distress, wheezes, rales, rhonchi, stridor Cardiovascular Exam: Present: regular rate, normal rhythm, normal heart sounds. Absent: systolic murmur, diastolic murmur, rubs, gallop, clicks GI/Abdominal exam: Present: soft, normal bowel sounds. Absent: distended, tenderness, guarding, rebound, rigid Extremities exam: Present: normal inspection, full ROM, normal capillary refill. Absent: tenderness, pedal edema, joint swelling, calf tenderness Back exam: Present: normal inspection Neurological exam: Present: alert, oriented X3, CN II-XII intact Psychiatric exam: Present: normal affect, normal mood Skin exam: Present: warm, dry, intact, normal color. Absent: rash Course Vital Signs 02/10/24 02/10/24 02/10/24 13:05 14:38 15:36 Temperature 97.4 F L Pulse Rate 62 59 L 55 L Respiratory 18 16 18 Rate Blood Pressure 111/73 125/73 160/78 O2 Sat by Pulse 97 98 98 Oximetry - Reevaluation(s) Reevaluation #1: 02/10/24 14:48 Records reviewed Reevaluation #2: 02/10/24 14:48 Patient symptoms unchanged Reevaluation #3: 02/10/24 14:49 Patient informed of results and questions answered Studies chest x-ray is negative for acute disease Reevaluation #4: Was pt. sent in by a medical professional or institution (, KIYA, OPTICAL INSTRUMENT ASSEMBLY SUPERVISOR, urgent care, hospital, or [facility]...) When possible be specific @ -no Did you speak to anyone other than the patient for history (EMS, parent, family, police, friend...)? What history was obtained from this source @ -no Did you review nursing and triage notes (agree or disagree)? Why? @ -agree Are old charts reviewed (outside hosp., previous admission, EMS record, old EKG, old radiological studies, urgent care reports/EKG's, [facility] records)? Report findings @ -yes Differential Diagnosis (chest pain, altered mental status, abdominal pain women, abdominal pain men, vaginal bleeding, weakness, fever, dyspnea, syncope, headache, dizziness, GI bleed, back pain, seizure, CVA, palpatations, mental health, musculoskeletal)? @ -prior EKG interpreted by me (3pts min.). @ -yes X-rays interpreted by me (1pt min.). @ -yes negative for acute disease CT interpreted by me (1pt min.). @ -no U/S interpreted by me (1pt. min.). @ -no What testing was considered but not performed or refused? (CT, X-rays, U/S, labs)? Why? @ -none What meds were considered but not given or refused? Why? @ -none Did you discuss the management of the patient with other professionals (professionals i.e. KIYA Benson, OPTICAL INSTRUMENT ASSEMBLY SUPERVISOR, lab, RT, psych nurse, director of social work, screen cutter and trimmer, teacher, motorized squad commanding officer, immigration case manager)? Give summary @ -no Was smoking cessation discussed for >3mins.? @ -no Was critical care preformed (if so, how long)? @ -no Were there social determinants of health that impacted care today? How? (Homelessness, low income, unemployed, alcoholism, drug addiction, transportation, low edu. Level, literacy, decrease access to med. care, assisted, rehab)? @ -none Was there de-escalation of care discussed even if they declined (Discuss DNR or withdrawal of care, Hospice)? DNR status @ -no What co-morbidities impacted this encounter? (DM, HTN, Smoking, COPD, CAD, Cancer, CVA, ARF, Chemo, Hep., AIDS, mental health diagnosis, sleep apnea, morbid obesity)? @ -none Was patient admitted / discharged? Hospital course, mention meds given and route, prescriptions, significant lab abnormalities, going to OR and other pertinent info. @ - 83 male to ER for evaluation of nonspecific chest pain epigastric pain, likely gaseous distention which is now resolved. Patient feels well and can be discharged home Discharge Undiagnosed new problem with uncertain prognosis? @ -no Drug Therapy requiring intensive monitoring for toxicity (Heparin, Nitro, Insulin, Cardizem)? @ -no Were any procedures done? @ -no Diagnosis/symptom? @ -Chest pain and abdominal pain Acute, or Chronic, or Acute on Chronic? @ -Acute Uncomplicated (without systemic symptoms) or Complicated (systemic symptoms)? @ -Complicated Side effects of treatment? @ -no Exacerbation, Progression, or Severe Exacerbation? @ -exacerbation Poses a threat to life or bodily function? How? (Chest pain, USA, [place], pneumonia, PE, COPD, DKA, ARF, appy, cholecystitis, CVA, Diverticulitis, Homicidal, Suicidal, threat to staff... and all critical care pts) @ -yes with extremes of age Reevaluation #5: Differential Chest Pain: Stable Angina, Unstable Angina, STEMI, NSTEMI Aortic Dissection, Pneumothorax, Musculoskeletal, Esophageal Spasm GERD, Cholecystitis, Pancreatitis, Zoster, this is not meant to be an all-inclusive list. Chest Pain MDM - MDM 83 male to ER for evaluation of nonspecific chest pain epigastric pain, likely gaseous distention which is now resolved. Patient feels well and can be discharged home Disposition Clinical Impression: Chest pain, Atypical chest pain, Abdominal pain Disposition: HOME SELF-CARE Condition: Good Instructions (If sedation given, give patient instructions): Chest Pain (ED), Abdominal Pain (ED) Is patient prescribed a controlled substance at d/c from ED?: No Referrals: Kerwin Mckeon MD [Primary Care Provider] - 1-2 days Time of Disposition: 14:50
--- NOTE | 2024-02-10 14:03 | XR ---
EXAMINATION TYPE: XR chest 2V DATE OF EXAM: 02/10/2024 COMPARISON: 10/28/2022 TECHNIQUE: PA and lateral views submitted. HISTORY: Chest pain FINDINGS: The lungs are clear and there is no pneumothorax, pleural effusion, or focal pneumonia. A basilar erwin bsegmental atelectasis favored over pneumonia. Heart size normal and no overt failure. Osseous struct ures demonstrate hypertrophic and degenerative changes of the spine. Prominent loops of bowel in the abdomen. AC joint arthropathy. Mild atherosclerotic change aorta. IMPRESSION: 1. Favor basilar atelectasis over pneumonia. 2. Distended bowel loops in the upper abdomen consider ileus or partial obstruction.
[2024-02-10 14:04] LABS: Basophils # (A) 0.1 k/uL (0-0.2); Basophils % (A) 1 %; Eosinophils # (A) 0.1 k/uL (0-0.7); Eosinophils % (A) 2 %; HCT 46.1 % (39.0-53.0); HGB 14.8 gm/dL (13.0-17.5); Lymphocytes # (A) 1.4 k/uL (1.0-4.8); Lymphocytes % (A) 26 %; MCH 28.3 pg (25.0-35.0); MCHC 32.1 g/dL (31.0-37.0); MCV 88.2 fL (80.0-100.0); Mean Platelet Volume 9.2; Monocytes # (A) 0.5 k/uL (0-1.0); Monocytes % (A) 9 %; Neutrophils # (A) 3.2 k/uL (1.3-7.7); Neutrophils % (A) 59 %; Platelet Count 146 k/uL (150-450); RBC 5.23 m/uL (4.30-5.90); RDW 13.8 % (11.5-15.5); WBC 5.5 k/uL (3.8-10.6)
[2024-02-10 14:06] VITALS: TEMP 97.4
[2024-02-10 14:19] LABS: INR 1.4 (<1.2)
[2024-02-10 14:20] LABS: Partial Thromboplastin Time 31.6 sec (22.0-30.0); Prothrombin Time 14.9 sec (10.0-12.5)
[2024-02-10 14:26] LABS: ALT 15 U/L (4-49); AST 20 U/L (17-59); African American GFR (CKD) 70 (>60 ml/min/1.73 sqM); Alkaline Phosphatase 82 U/L (38-126); Anion Gap 9 mmol/L; Blood Urea Nitrogen 17 mg/dL (9-20); Carbon Dioxide 26 mmol/L (22-30); Chloride 103 mmol/L (98-107); Glucose 93 mg/dL (74-99); Lipase 74 U/L (23-300); Magnesium 1.3 mg/dL (1.6-2.3); Non-African American GFR(CKD) 61 (>60 ml/min/1.73 sqM); Sodium 138 mmol/L (137-145); Total Bilirubin 0.8 mg/dL (0.2-1.3); Total Protein 6.8 g/dL (6.3-8.2)
[2024-02-10 14:37] LABS: NT-Pro-B-Type Natriuretic Pept 1650 pg/mL
[2024-02-10 15:54] VITALS: BP 160/78; PULSE 55; RESP 18
== END 2024-02-10 15:50 | disposition home or self-care (01) ==
LOC: EC 13:03
DX: I45.10 Unspecified right bundle-branch block (principal); R10.13 Epigastric pain; F17.200 Nicotine dependence, unspecified, uncomplicated; Z88.0 Allergy status to penicillin
CPT/HCPCS: 36415; 71046; 80053; 83690; 83735; 83880; 84484; 85025; 85610; 85730; 93005; 99285

== ENCOUNTER 2024-08-02 15:26 | Emergency (ER) | payer MEDICARE ==
[2024-08-02] MEDS: SODIUM CHLORIDE 0.9% 500 ML 500 ML IV ONE (16:03)
--- NOTE | 2024-08-02 16:04 | ED ---
General Adult HPI - General Chief complaint: Recheck/Abnormal Lab/Rx Stated complaint: abn labs Time Seen by Provider: 08/02/24 15:46 Source: patient, RN notes reviewed, old records reviewed Mode of arrival: ambulatory Limitations: no limitations - History of Present Illness Initial comments: 84-year-old male presenting with elevated blood pressure. Patient has history of hypertension currently taking lisinopril and metoprolol. He denies severe headache. Denies chest pain. Denies abdominal pain. He states he has been compliant with his medications. Patient is under stress due to some recent illness with his . Believes this may be responsible for his elevated blood pressure. - Related Data Home Medications Medication Instructions Recorded Confirmed Temazepam [Restoril] 30 mg PO HS 08/24/18 08/02/24 Alfuzosin HCl [Alfuzosin HCl ER] 10 mg PO HS 08/02/24 08/02/24 Apixaban [Eliquis] 5 mg PO BID 08/02/24 08/02/24 Atorvastatin [Lipitor] 20 mg PO HS 08/02/24 08/02/24 Dicyclomine [Bentyl] 10 mg PO TID 08/02/24 08/02/24 Metoprolol Tartrate [Lopressor] 25 mg PO BID 08/02/24 08/02/24 Pantoprazole [Protonix] 40 mg PO BID 08/02/24 08/02/24 lisinopriL [Zestril] 20 mg PO DAILY 08/02/24 08/02/24 Allergies Allergy/AdvReac Type Severity Reaction Status Date / Time Penicillins Allergy Rash/Hives Verified 08/02/24 16:09 Review of Systems ROS Statement: Those systems with pertinent positive or pertinent negative responses have been documented in the HPI. ROS Other: All systems not noted in ROS Statement are negative. Past Medical History Past Medical History: Atrial Fibrillation, CVA/TIA, GERD/Reflux, Prostate Disorder Additional Past Medical History / Comment(s): insomnia, History of Any Multi-Drug Resistant Organisms: None Reported Past Surgical History: Appendectomy, Joint Replacement Additional Past Surgical History / Comment(s): L total knee arthroplasty, bilateral cataract removal with lens implants. Past Anesthesia/Blood Transfusion Reactions: No Reported Reaction Past Psychological History: No Psychological Hx Reported Smoking Status: Current every day smoker, Never smoker Past Alcohol Use History: Occasional Past Drug Use History: None Reported - Past Family History Mother Family Medical History: No Reported History Additional Family Medical History / Comment(s): Mother lived to be 93 yrs old. Father Family Medical History: Cancer Additional Family Medical History / Comment(s): Father of prostrate cancer at the age of 64yrs. General Exam Limitations: no limitations General appearance: alert, in no apparent distress Head exam: Present: atraumatic, normocephalic Eye exam: Present: normal appearance, PERRL Respiratory exam: Present: normal lung sounds bilaterally. Absent: respiratory distress, wheezes Cardiovascular Exam: Present: regular rate, irregular rhythm GI/Abdominal exam: Present: soft. Absent: distended, tenderness, guarding Extremities exam: Present: normal inspection, normal capillary refill Neurological exam: Present: alert, oriented X3, CN II-XII intact, motor sensory deficit Psychiatric exam: Present: normal affect, normal mood Skin exam: Present: warm, dry, intact Course Vital Signs 08/02/24 08/02/24 08/02/24 15:29 15:44 16:30 Temperature 98.0 F Pulse Rate 71 60 60 Pulse Rate [ 61 Gaming Cage Cashier ] Respiratory 17 18 18 Rate Blood Pressure 202/81 204/96 167/110 O2 Sat by Pulse 98 98 98 Oximetry 08/02/24 17:16 Temperature Pulse Rate 58 L Pulse Rate [ Gaming Cage Cashier ] Respiratory 18 Rate Blood Pressure 171/88 O2 Sat by Pulse 97 Oximetry Medical Decision Making - Medical Decision Making Was pt. sent in by a medical professional or institution (, PA, SHANK TAPPER, urgent care, hospital, or retirement...) When possible be specific @ -No Did you speak to anyone other than the patient for history (EMS, parent, family, police, friend...)? What history was obtained from this source @ -No Did you review nursing and triage notes (agree or disagree)? Why? @ -I reviewed and agree with nursing and triage notes Were old charts reviewed (outside hosp., previous admission, EMS record, old EKG, old radiological studies, urgent care reports/EKG's, retirement records)? Report findings @ -No old charts were reviewed Differential Diagnosis: Asymptomatic hypertension, hypertensive emergency, hypertensive urgency EKG interpreted by me (3pts min.). @ -[Atrial fibrillation rate of 54, QRS duration 129, QTc [address] segment elevation. X-rays interpreted by me (1pt min.). @ -None done CT interpreted by me (1pt min.). @ -None done U/S interpreted by me (1pt. min.). @ -None done What testing was considered but not performed or refused? (CT, X-rays, U/S, la bs)? Why? @ -None What meds were considered but not given or refused? Why? @ -None Did you discuss the management of the patient with other professionals (professionals i.e. , PA, SHANK TAPPER, lab, RT, psych nurse, foster care social worker, gauge machine operator, teacher, activities officer, case managers)? Give summary @ -No Was smoking cessation discussed for >3mins.? @ -No Was critical care preformed (if so, how long)? @ -No Were there social determinants of health that impacted care today? How? (Homelessness, low income, unemployed, alcoholism, drug addiction, transportation, low edu. Level, literacy, decrease access to med. care, care home, rehab)? @ -No Was there de-escalation of care discussed even if they declined (Discuss DNR or withdrawal of care, Hospice)? DNR status @ -No What co-morbidities impacted this encounter? (DM, HTN, Smoking, COPD, CAD, Cancer, CVA, ARF, Chemo, Hep., AIDS, mental health diagnosis, sleep apnea, morbid obesity)? @ -[Hypertension, atrial fibrillation Was patient admitted / discharged? Hospital course, mention meds given and route, prescriptions, significant lab abnormalities, going to OR and other pertinent info. @ -84-year-old male with asymptomatic hypertension. Patient has initial blood pressure 200/100. This is downtrending with rest in the emergency department. His laboratory testing is unremarkable including CBC, CMP, troponin. With the exception of hypomagnesemia at 1.3. Patient is given 1 g of IV magnesium in the emergency department. He is instructed to increase his lisinopril to 30 mg daily and monitor his blood pressure closely. Undiagnosed new problem with uncertain prognosis? @ -No Drug Therapy requiring intensive monitoring for toxicity (Heparin, Nitro, Insulin, Cardizem)? @ -No Were any procedures done? @ -No Diagnosis/symptom? @ -Hypertension Acute, or Chronic, or Acute on Chronic? @ -Acute on chronic Uncomplicated (without systemic symptoms) or Complicated (systemic symptoms)? @ -Default Side effects of treatment? @ -No Exacerbation, Progression, or Severe Exacerbation? @ -No Poses a threat to life or bodily function? How? (Chest pain, USA, [place], pneumonia, PE, COPD, DKA, ARF, appy, cholecystitis, CVA, Diverticulitis, Homicidal, S uicidal, threat to staff... and all critical care pts) @ -[Low risk at this time - Lab Data Result diagrams: 08/02/24 15:59 08/02/24 15:59 Lab Results 08/02/24 08/02/24 08/02/24 Range/Units 15:59 15:59 15:59 WBC 6.5 (3.8-10.6) k/uL RBC 4.96 (4.30-5.90) m/uL Hgb 13.3 (13.0-17.5) gm/dL Hct 42.6 (39.0-53.0) % MCV 86.0 (80.0-100.0) fL MCH 26.9 (25.0-35.0) pg MCHC 31.2 (31.0-37.0) g/dL RDW 13.5 (11.5-15.5) % Plt Count 226 (150-450) k/uL MPV 8.4 Neutrophils % 63 % Lymphocytes % 25 % Monocytes % 7 % Eosinophils % 3 % Basophils % 1 % Neutrophils # 4.1 (1.3-7.7) k/uL Lymphocytes # 1.6 (1.0-4.8) k/uL Monocytes # 0.4 (0-1.0) k/uL Eosinophils # 0.2 (0-0.7) k/uL Basophils # 0.0 (0-0.2) k/uL Hypochromasia Slight Sodium 141 (137-145) mmol/L Potassium 4.3 (3.5-5.1) mmol/L Chloride 105 (98-107) mmol/L Carbon Dioxide 27 (22-30) mmol/L Anion Gap 9 mmol/L BUN 16 (9-20) mg/dL Creatinine 0.90 (0.66-1.25) mg/dL Est GFR (CKD-EPI)AfAm >90 (>60 ml/min/1.73 sqM) Est GFR (CKD-EPI)NonAf 79 (>60 ml/min/1.73 sqM) Glucose 97 (74-99) mg/dL Calcium 8.5 (8.4-10.2) mg/dL Magnesium 1.3 L (1.6-2.3) mg/dL Total Bilirubin 0.9 (0.2-1.3) mg/dL AST 29 (17-59) U/L ALT 19 (4-49) U/L Alkaline Phosphatase 93 (38-126) U/L Troponin I <0.012 (0.000-0.034) ng/mL Total Protein 7.0 (6.3-8.2) g/dL Albumin 4.2 (3.5-5.0) g/dL Disposition Clinical Impression: Hypertension Disposition: HOME SELF-CARE Instructions (If sedation given, give patient instructions): Hypertension (ED) Additional Instructions: Please monitor your blood pressure closely and return with any worsening or changing symptoms. Please follow-up with your primary care provider. Is patient prescribed a controlled substance at d/c from ED?: No Referrals: Kerwin Mckeon MD [Primary Care Provider] - 1-2 days Time of Disposition: 17:32
[2024-08-02 16:29] LABS: Basophils % (A) 1 %; Eosinophils # (A) 0.2 k/uL (0-0.7); Eosinophils % (A) 3 %; HCT 42.6 % (39.0-53.0); HGB 13.3 gm/dL (13.0-17.5); Hypochromasia Slight; Lymphocytes # (A) 1.6 k/uL (1.0-4.8); Lymphocytes % (A) 25 %; MCH 26.9 pg (25.0-35.0); MCHC 31.2 g/dL (31.0-37.0); Mean Platelet Volume 8.4; Monocytes # (A) 0.4 k/uL (0-1.0); Monocytes % (A) 7 %; Neutrophils # (A) 4.1 k/uL (1.3-7.7); Neutrophils % (A) 63 %; Platelet Count 226 k/uL (150-450); RBC 4.96 m/uL (4.30-5.90); RDW 13.5 % (11.5-15.5); WBC 6.5 k/uL (3.8-10.6)
[2024-08-02 17:03] LABS: ALT 19 U/L (4-49); African American GFR (CKD) >90 (>60 ml/min/1.73 sqM); Anion Gap 9 mmol/L; Blood Urea Nitrogen 16 mg/dL (9-20); Calcium 8.5 mg/dL (8.4-10.2); Carbon Dioxide 27 mmol/L (22-30); Chloride 105 mmol/L (98-107); Glucose 97 mg/dL (74-99); Non-African American GFR(CKD) 79 (>60 ml/min/1.73 sqM); Sodium 141 mmol/L (137-145); Total Bilirubin 0.9 mg/dL (0.2-1.3)
[2024-08-02 17:18] LABS: AST 29 U/L (17-59); Albumin 4.2 g/dL (3.5-5.0); Alkaline Phosphatase 93 U/L (38-126); Magnesium 1.3 mg/dL (1.6-2.3); Potassium 4.3 mmol/L (3.5-5.1)
[2024-08-02] MEDS: MAGNESIUM SULFATE-D5W PMX 1 GM in DEXTROSE/WATER 1 100ML.BAG IVPB ONE (17:33)
[2024-08-02 19:11] VITALS: BP 176/81; PULSE 57; RESP 16; TEMP 97.9
== END 2024-08-02 19:11 | disposition home or self-care (01) ==
LOC: EC 15:26
CPT/HCPCS: 36415; 80053; 83735; 84484; 85025; 93005; 96361; 96365; 99283